=== PATIENT | female | born 2000 | race Caucasian/White ===

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

== ENCOUNTER 2022-09-22 15:53 | Emergency (ER) | payer OTHER, SELFPAY ==
[2022-09-22 16:08] VITALS: BP 118/60; PULSE 80; RESP 20; TEMP 36.3; O2SAT 100
--- NOTE | 2022-09-22 16:13 | ED.URI ---
HPI - URI/Sore Throat General Chief Complaint: Upper Respiratory Infection Stated Complaint: congestion/ear pain Time Seen by Provider: 09/22/22 16:10 Source: patient Mode of arrival: ambulatory Limitations: no limitations History of Present Illness HPI Narrative: Dyana is a 22-year-old female patient presenting to the clinic today with complaints of runny nose, congestion, and right ear pain. She reports symptoms have been going on for approximately 2 days. Did a COVID test at home and it was negative. MD elicited complaint: cough and nasal congestion Related Data Home Medications Medication Instructions Recorded Confirmed norgestimate 0.25 mg-ethinyl 1 tablet PO DAILY 06/25/21 09/22/22 estradiol 35 mcg tablet (Verna) sertraline 100 mg tablet 150 mg PO DAILY 06/25/21 09/22/22 trazodone 100 mg tablet 100 mg PO HS 06/25/21 09/22/22 topiramate 25 mg tablet 25 mg PO BID 09/22/22 09/22/22 Allergies Allergy/AdvReac Type Severity Reaction Status Date / Time No Known Allergies Allergy Verified 09/22/22 16:13 Review of Systems Review of Systems: Pertinent positives per HPI. Patient denies any fever, chills, rash, headache, visual changes, dizziness, shortness of breath, chest pain, palpitations, nausea, vomiting, diarrhea, constipation, abdominal pain, or any urinary issues. PMFSH Comments At the time of my signature, I reviewed and agree with the nursing past medical, surgical, social, and family history. There is no relevant family history pertinent to the patient complaint. Exam Narrative: General: Well-developed, obese, in no apparent distress Head: Normocephalic, atraumatic Eyes: Pupils equally round and reactive to light bilaterally, EOM intact, sclera and conjunctive clear, no discharge, lids normal Ears: Left tMs intact and clear, right TM intact, with fluid noted behind the TM, ear canals clear, no drainage, grossly hearing normal. Nose: Nares patent, clear nasal discharge, no inflammation, no sinus tenderness. Mouth: Oral pharynx without lesions or masses, good dentition, MMM. Postnasal drip Neck: Supple, trachea midline, no enlargement of anterior or posterior cervical nodes, no thyroid masses or goiter palpable. Cardio: Regular rate and rhythm, s1 and s2 normal, no murmur appreciated. Resp: Clear to auscultation bilaterally, no rhonchi, rales, wheezing or rubs Course Course Emergency Course: Portions of this record may have been created with voice recognition software. Level of Care: Express Care Visit Vital Signs Vital signs: Vital Signs Temperature 36.3 C L 09/22/22 16:08 Pulse Rate 80 09/22/22 16:08 Respiratory Rate 20 09/22/22 16:08 Blood Pressure 118/60 09/22/22 16:08 Pulse Oximetry 100 09/22/22 16:08 Oxygen Delivery Room Air 09/22/22 16:08 Temperature 36.3 C L 09/22/22 16:08 Pulse Rate 80 09/22/22 16:08 Respiratory Rate 20 09/22/22 16:08 Blood Pressure 118/60 09/22/22 16:08 Pulse Oximetry 100 09/22/22 16:08 Oxygen Delivery Room Air 09/22/22 16:08 Vital signs reviewed MDM - URI/Sore Throat MDM Narrative Medical decision making narrative: At the time of visit patient is resting comfortably on the exam table. I suspect patient has serous otitis and URI. Will send in prescription for some prednisone. Supportive measures were discussed with the patient she voiced understanding discharge instructions and agrees to treatment plan. Differential Diagnosis Differential diagnosis: Likely upper respiratory infection, otitis media, sinusitis, viral infection, bronchitis, influenza, pharyngitis and other (COVID) Discharge Plan Discharge Clinical Impression: Upper respiratory infection Qualifiers: URI type: unspecified URI Qualified Code(s): J06.9 - Acute upper respiratory infection, unspecified Acute serous otitis media Qualifiers: Laterality: right Recurrence: non-recurrent Qualified Code(s): H65.01 - Acute serous otitis media,
== END 2022-09-22 16:20 | disposition home or self-care (01) ==
PROVIDERS: Emergency Provider Nurse Practitioner Family; PCP Nurse Practitioner Family
DX: J06.9 Acute upper respiratory infection, unspecified (principal); H65.01 Acute serous otitis media, right ear; F41.9 Anxiety disorder, unspecified; F32.A Depression, unspecified
CPT/HCPCS: 99213; G0463

== ENCOUNTER 2022-11-29 13:13 | Emergency (ER) | payer OTHER, SELFPAY ==
[2022-11-29 13:20] VITALS: BP 150/80; PULSE 85; RESP 16; TEMP 36.7; O2SAT 100
--- NOTE | 2022-11-29 13:24 | ED.UPPEXIN ---
HPI - Extremity Injury (Upper) General Chief Complaint: Extremity Injury, Upper Stated Complaint: Right Shoulder Pain Source: patient and RN notes reviewed History of Present Illness HPI narrative: 22 yo F presents to urgent care with complaints of right posterior shoulder pain that radiates down to right hand. Pt reports tingling to right fingers. Pt states this has been going on since Tuesday night/Tuesday morning. Pt denies any strenuous or abnormal activity. Denies any posterior neck pain but reports some right lateral neck pain. Denies any fevers, chills, chest pain, SOB, or vomiting. Pt has been taking ibuprofen and Tylenol at home. Related Data Home Medications Medication Instructions Recorded Confirmed sertraline 100 mg tablet 150 mg PO DAILY 06/25/21 11/29/22 trazodone 100 mg tablet 100 mg PO HS 06/25/21 11/29/22 topiramate 25 mg tablet 25 mg PO BID 09/22/22 11/29/22 norgestimate 0.25 mg-ethinyl 1 tablet PO DAILY 11/29/22 11/29/22 estradiol 35 mcg tablet (Sprintec (28)) Allergies Allergy/AdvReac Type Severity Reaction Status Date / Time No Known Allergies Allergy Verified 11/29/22 13:25 Review of Systems Review of Systems: CONSTITUTIONAL: Denies fever, chills, or sweats. EYES: Denies visual changes, redness, or discharge. ENT: Denies otalgia and sore throat CARDIOVASCULAR: Denies chest pain, palpitations, or edema. RESPIRATORY: Denies cough or dyspnea. GASTROINTESTINAL: Denies abdominal pain, nausea, vomiting, or diarrhea. GENITOURINARY: Denies dysuria or hematuria. SKIN: Denies rash or itching. MUSCULOSKELETAL:right posterior shoulder pain that radiates down right arm into hand NEUROLOGIC: tingling to right 4th and 5th fingers Pertinent positives per HPI. PMFSH Comments At the time of my signature, I reviewed and agree with the nursing past medical, surgical, social, and family history. There is no relevant family history pertinent to the patient complaint. Exam Narrative: GENERAL: This is a well-nourished, well-developed patient, in no apparent distress. HEAD: normocephalic, atraumatic. EYES: Sclera clear/white. Vision is grossly intact. EARS: External ears normal, auditory canals clear and without drainage. Hearing grossly intact. NOSE: External nose normal with no obvious nasal discharge, nares without redness, no rhinorrhea. THROAT: Mucous membranes moist, posterior pharynx clear. NECK: Neck supple, non-tender without lymphadenopathy, masses or thyromegaly. CARDIOVASCULAR: Regular rate and rhythm without murmurs, gallops, or rubs. RESPIRATORY: Clear to auscultation. Breath sounds equal bilaterally. No wheezes, rales, or rhonchi. GASTROINTESTINAL: Abdomen soft, non-tender, nondistended. Bowel sounds are active. No hepato-splenomegaly, or palpable masses. No guarding. SKIN: warm, intact with no suspicious lesions or rash, good texture and turgor. NEURO: awake, alert, and oriented to person, place and time. There were no obvious focal neurologic abnormalities. EXTREMITIES: No clubbing, cyanosis, or edema. No joint tenderness, effusion, or edema noted. Pt able to lift right shoulder up to shoulder height before being stopped from pain in shoulder. Tenderness to right posterior shoulder. BACK: Nontender without deformity or crepitus. No flank tenderness. Course Course Level of Care: Express Care Visit Vital Signs Vital signs: Reviewed MDM - Extremity Injury (Upper) MDM Narrative Medical decision making narrative: Take the muscle relaxers as directed. Do not drive after taking the muscle relaxers. May take 600 mg of ibuprofen every 6 hours with food and 1,000 mg of Tylenol every 5 hours for pain. If symptoms persist, talk to your wafer machine operator about possible steroid. Differential Diagnosis Differential diagnosis: Likely dislocation of shoulder and other (shoulder strain, radiculopathy) Critical Care Time Critical Care Time Critical Care Time: No Discharge Plan Discharge
[2022-11-29 13:27] VITALS: BP 150/80; PULSE 85; RESP 16; TEMP 36.7; O2SAT 100
== END 2022-11-29 13:34 | disposition home or self-care (01) ==
PROVIDERS: Emergency Provider Nurse Practitioner Family; PCP Nurse Practitioner Family
DX: M54.12 Radiculopathy, cervical region (principal); Z79.899 Other long term (current) drug therapy
CPT/HCPCS: 99213; G0463

== ENCOUNTER 2022-12-28 11:27 | Emergency (ER) | payer OTHER, SELFPAY ==
[2022-12-28 11:34] VITALS: BP 120/80; PULSE 96; RESP 20; TEMP 36.7; O2SAT 100
--- NOTE | 2022-12-28 12:01 | ED.GENADULT ---
HPI - General Adult General Chief complaint: Upper Respiratory Infection Stated complaint: Congestion/Chills Source: patient Mode of arrival: ambulatory Limitations: no limitations History of Present Illness HPI narrative: Patient presents for evaluation of sick symptoms for last 3 days. Symptoms include sore throat, sinus congestion, nausea, diarrhea, occasional cough and generalized body aches. No fever, chills, vomiting, or shortness of breath. 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 She took a home COVID test which was negative. Related Data Home Medications Medication Instructions Recorded Confirmed sertraline 100 mg tablet 150 mg PO DAILY 06/25/21 12/28/22 trazodone 100 mg tablet 100 mg PO HS 06/25/21 12/28/22 topiramate 25 mg tablet 25 mg PO BID 09/22/22 12/28/22 norgestimate 0.25 mg-ethinyl 1 tablet PO DAILY 11/29/22 12/28/22 estradiol 35 mcg tablet (Sprintec (28)) Allergies Allergy/AdvReac Type Severity Reaction Status Date / Time Sulfa (Sulfonamide Allergy Hives Verified 12/28/22 11:43 Antibiotics) Review of Systems Review of Systems: CONSTITUTIONAL: Denies fever, chills, or sweats. EYES: Denies visual changes, redness, or discharge. ENT: Reports sinus congestion and sore throat. Denies otalgia CARDIOVASCULAR: Denies chest pain, palpitations, or edema. RESPIRATORY: Reports occasional cough GASTROINTESTINAL: Reports nausea and diarrhea. Denies abdominal pain or vomiting GENITOURINARY: Denies dysuria or hematuria. SKIN: Denies rash or itching. MUSCULOSKELETAL: Reports generalized body aches NEUROLOGIC: Denies headache, numbness, dizziness, or weakness. PSYCHIATRIC: Denies anxiety or depression. [facility] Past Medical History Medical History No pertinent past medical history Surgical History Surgical History No pertinent past surgical history Family History Family History Mother Family history non-contributory Social History Social History Tobacco type: e-cigarettes/vaping Living arrangements: with family Additional occupation/education comments: works in pharmacy Gender identity (if verbalized by the patient): Female Spiritual care concerns: No Exam Narrative: GENERAL: Well-appearing, well-nourished, and in no acute distress. HEAD: Normocephalic, atraumatic. EYES: PERRLA and EOMI. ENT: Nares clear, no rhinorrhea or epistaxis. Mucous membranes moist. Oropharynx without tonsillar hypertrophy exudate or other lesions. Bilateral TMs pearly atlamirano nonbulging NECK: Supple. No adenopathy or masses. No carotid bruits or JVD CHEST: Clear to auscultation. No respiratory distress. No wheezes rales or rhonchi HEART: Regular rate and rhythm. No murmur heard. Normal peripheral pulses. ABDOMEN: Soft, nontender, nondistended, normal active bowel sounds. EXTREMITIES: Normal range of motion. No edema. SKIN: Warm, dry, no rash. NEURO: No focal deficits. Alert and oriented x3. PSYCH: Normal mood and affect. Course Course Emergency Course: This is a 22-year-old female who presented for evaluation of sick symptoms. COVID test at home was negative. Influenza and strep negative. Will treat with Zofran and the mode. Increase hydration. Biuk-muw-[id number] agents for symptom management. Follow with primary provider. Go to the ER for worsening symptoms. Patient in agreement plan of care. Level of Care: Express Care Visit Vital Signs Vital signs: Vital Signs Temperature 36.7 C 12/28/22 11:34 Pulse Rate 96 12/28/22 11:34 Respiratory Rate 20 12/28/22 11:34 Blood Pressure 120/80 12/28/22 11:34 Pulse Oximetry 100 12/28/22 11:
== END 2022-12-28 12:06 | disposition home or self-care (01) ==
PROVIDERS: Emergency Provider Nurse Practitioner; PCP Family Medicine
DX: B34.9 Viral infection, unspecified (principal); F17.290 Nicotine dependence, other tobacco product, uncomplicated; Z79.899 Other long term (current) drug therapy
CPT/HCPCS: 87081; 87804; 87880; 99213; G0463

== ENCOUNTER 2023-11-02 08:11 | Emergency (ER) | payer OTHER, SELFPAY ==
--- NOTE | ~2023-11-02 | XR_ITS ---
XR chest 1V portable Ordering provider: Iron Hamm MD History: 23 years Female with . flu like sxs, nausea, vomitting, body aches . Comparison: None. FINDINGS: MEDIASTINUM: The cardiac silhouette is not enlarged. LUNGS: No infiltrates, effusions or pneumothorax. OTHER: No free air under the diaphragm. IMPRESSION: No acute cardiopulmonary pathology. Reviewed, dictated and finalized at location A.
[2023-11-02 08:21] VITALS: BP 143/94; PULSE 115; RESP 18; TEMP 36.2; O2SAT 97
[2023-11-02 08:32] LABS: Basophils Percent Auto 0.6 % (0.2-1.2); Eosinophils Percent Auto 0.4 % (0-4.4); Hematocrit 45.5 % (37.0-47.0); Hemoglobin 16.1 g/dL (12.0-15.0); Immature Granulocyte Absolute 0.02 K/mm3 (0.00-0.031); Immature Granulocyte Percent A 0.3 % (0-0.5); Lymphocytes Absolute Auto 1.04 K/mm3 (0.9-3.2); Lymphocytes Percent Auto 15.5 % (18.3-44.2); Mean Corpuscular HGB Conc 35.4 g/dl (32-36); Mean Corpuscular Hemoglobin 30.6 pg (26-34); Mean Corpuscular Volume 86.5 fl (80-100); Mean Platelet Volume 10.2 fl (7.4-10.4); Monocytes Absolute Auto 0.6 K/mm3 (0.1-0.6); Monocytes Percent Auto 9.6 % (2.6-8.5); Neutrophils Absolute Auto 4.9 K/mm3 (1.3-6.7); Neutrophils Percent Auto 73.6 % (45.5-73.1); Platelet Count Result 248 k/mm3 (150-375); Red Blood Count 5.26 M/mm3 (4.2-5.4); Red Cell Distribution Width 13.2 % (11.5-14.5); White Blood Count 6.7 K/mm3 (4.5-10.0)
[2023-11-02 08:33] VITALS: BP 157/89; PULSE 126; RESP 12; O2SAT 93
--- NOTE | 2023-11-02 08:34 | PC.NURSE ---
pt attempted to provide urine sample but was unable to go at this time
[2023-11-02 08:46] VITALS: BP 118/95; PULSE 113; RESP 20; O2SAT 94
[2023-11-02 08:49] LABS: Alanine Aminotransferase 37 U/L (6-35); Albumin Level 4.9 g/dL (3.5-5.1); Alkaline Phosphatase 74 U/L (38-126); Anion Gap 23 mmol/L (4-12); Aspartate Amino Transferase 50 U/L (14-36); Bilirubin,Total 1.1 mg/dL (0.2-1.3); Blood Urea Nitrogen 5 mg/dL (7-17); Calcium 9.8 mg/dL (8.4-10.2); Carbon Dioxide 18 mmol/L (22-30); Chloride 97 mmol/L (98-107); Estimated CRCL calculation 129 ml/min; Estimated Glomerular Filt Rate > 60; Glucose 102 mg/dL (65-110); Lipase 147 U/L (23-300); Sodium 138 mmol/L (137-145)
[2023-11-02 09:31] VITALS: BP 107/90; PULSE 113; RESP 15; O2SAT 99
[2023-11-02 10:04] LABS: Appearance Urine Sl Cloudy (Clear); Color Urine Dark Yellow (Yellow)
[2023-11-02 10:05] LABS: Add Urine Microscopic? YES
[2023-11-02 10:10] LABS: Mucus Urine Moderate /lpf
[2023-11-02 10:11] LABS: Bacteria Urine 4+ /hpf; Blood Urine Trace-intact (Negative); Glucose Urine UA Negative (Negative); Ketones Urine 4+ mg/dL (Negative); Protein Urine 1+ mg/dL (Negative); Specific Grav Ur >= 1.030 (1.001-1.035)
[2023-11-02 10:12] LABS: Bilirubin Urine 2+ (Negative); Leukocyte Esterase Ur 1+ LEU/UL (Negative); Nitrate Urine Negative (Negative); RBC Urine 0-2 /hpf (0-2); Squamous Epithelial Cell Urine Moderate /hpf (Few); Urobilinogen Urine 0.2 mg/dL (<2.0)
[2023-11-02 10:23] LABS: Pregnancy On Board Control Positive; Urine Pregnancy Test Negative
--- NOTE | 2023-11-02 10:40 | ED.GENADULT ---
HPI - General Adult General Chief complaint: Abdominal Pain Stated complaint: abdominal pain/weakness/SOB Time Seen by Provider: 11/02/23 08:35 History of Present Illness HPI narrative: This is a 23-year-old female presenting with viral illness. Five days ago she developed fevers headaches body aches nausea and vomiting. Patient has been seen in Urgent Care and primary care physician. Patient came in today because she had a headache. She has not taken any Motrin or Tylenol today. Patient denies chest pain difficulty breathing. She does have some abdominal pain which she is states with nausea and vomiting. No urinary symptoms. Related Data Home Medications Medication Instructions Recorded Confirmed sertraline 100 mg tablet 150 mg PO DAILY 06/25/21 11/02/23 trazodone 100 mg tablet 100 mg PO HS 06/25/21 11/02/23 topiramate 25 mg tablet 25 mg PO BID 09/22/22 11/02/23 norgestimate 0.25 mg-ethinyl 1 tablet PO DAILY 11/29/22 11/02/23 estradiol 35 mcg tablet (Sprintec (28)) Allergies Allergy/AdvReac Type Severity Reaction Status Date / Time Sulfa (Sulfonamide Allergy Hives Verified 12/28/22 11:43 Antibiotics) [facility] Past Medical History Medical History No pertinent past medical history Surgical History Surgical History No pertinent past surgical history Family History Family History Mother Family history non-contributory Social History Social History Tobacco type: e-cigarettes/vaping Living arrangements: with family Additional occupation/education comments: works in pharmacy Gender identity (if verbalized by the patient): Female Spiritual care concerns: No Exam Narrative: APPEARANCE: No apparent distress. Head: a TMs normal, no erythema posterior oropharynx EYES: EOMI, NOSE: Atraumatic NECK: Trachea midline RESPIRATORY: No increased rate of breathing clear to auscultation CARDIOVASCULAR: RRR, no peripheral edema ABDOMINAL: Soft nontender no guarding or rebound no CVA tender MUSCULOSKELETAl: No obvious deformities NEURO: Alert. Moving 4/4 extremities SKIN:: Warm, dry. Normal color PSYCHIATRIC: Normal affect Course Vital Signs Vital signs: Vital Signs Temperature 97.1 F L 11/02/23 08:21 Pulse Rate 115 H 11/02/23 08:21 Respiratory Rate 18 11/02/23 08:21 Blood Pressure 143/94 H 11/02/23 08:21 Pulse Oximetry 97 11/02/23 08:21 Temperature 97.1 F L 11/02/23 08:21 Pulse Rate 101 H 11/02/23 11:01 Respiratory Rate 16 11/02/23 11:01 Blood Pressure 116/89 11/02/23 11:01 Pulse Oximetry 100 11/02/23 11:01 Medical Decision Making MDM Narrative Medical decision making narrative: -Course: 23-year-old female presenting with viral symptoms. White count normal. Patient with slight anion gap acidosis likely due to dehydration. Patient given 2 L of fluid resuscitation and potassium repletion. Urine was a contaminated catch and she has no urinary symptoms. Will continue to monitor. Viral swabs negative, chest x-ray negative. On re-evaluation patient is resting comfortably in bed. She will be discharged with supportive measures and given primary care follow-up. -DDX includes but is not limited to: Viral syndrome pneumonia UTI dehydration, sepsis -Independent interpretation of studies: Independent EKG interpretation: Rhythm [sinus], Rate [88], [place] -[normal], [place] -[normal], QRS [narrow], QTC [normal], T waves -[negative for concerning inversions], ST Segments - [Negative for concerning elevations] Final interpretations: [Normal Sinus Rhythm] -Interventions: 2 L normal saline, Toradol Tylenol, potassium repletion -Shared decision making / Disposition: Discharge Vital Signs Vital Signs: Vital Signs Temperature 97.1 F
--- NOTE | 2023-11-02 10:44 | ECG_ITS ---
Test Date: 2023-11-02 10:56:09 Measurements Intervals [place] Rate: 88 P: -12 AR: 140 QRS: 64 QRSD: 83 T: 59 QT: 362 QTc: 439 Interpretive Statements SINUS RHYTHM NORMAL ECG No previous ECG available for comparison Electronically Signed On 11-02-2023 11:53:48 CDT by Ramiro Zapien D.O.
[2023-11-02] MEDS: POTASSIUM CHLORIDE 20 MEQ PACKET (FOR LIQUID) 40 MEQ PO (10:45)
[2023-11-02] MEDS: KETOROLAC 15 MG/ML VIAL (*BKC) IV PUSH (10:45)
[2023-11-02] MEDS: ACETAMINOPHEN 500 MG TABLET 1000 MG PO (10:45)
[2023-11-02] MEDS: SODIUM CHLORIDE 0.9% IV 2,000 ML 999 ML IV CONT (10:45)
[2023-11-02] MEDS: ONDANSETRON INJ 4 MG/2 ML VIAL IV PUSH (10:46)
[2023-11-02 10:55] VITALS: BP 127/87; PULSE 89; RESP 12; O2SAT 100
[2023-11-02 11:01] VITALS: BP 116/89; PULSE 101; RESP 16; O2SAT 100
[2023-11-02 11:31] LABS: Influenza A QL RT-PCR Negative (Negative); Influenza B QL RT-PCR Negative (Negative); RSV RNA, RT-PCR Negative (Negative); SARS-CoV-2 RNA PCR Negative (Negative)
== END 2023-11-02 12:02 | disposition home or self-care (01) ==
PROVIDERS: Emergency Provider Emergency Medicine; PCP Nurse Practitioner Family
DX: B34.9 Viral infection, unspecified (principal); Z20.822 Contact with and (suspected) exposure to COVID-19; F17.290 Nicotine dependence, other tobacco product, uncomplicated; Z79.899 Other long term (current) drug therapy
CPT/HCPCS: 36415; 71045; 80053; 81001; 81025; 83690; 85025; 87086; 87637; 93005; 96361; 96374; 96375; 99284; A9270; J1885; J2405; J7030

== ENCOUNTER 2024-04-20 13:24 | Emergency (ER) | payer OTHER, SELFPAY ==
--- NOTE | ~2024-04-20 | XR_ITS ---
EXAMINATION: XR knee LT min 4V DATE: 04/20/2024 14:08 INDICATION: Left knee injury. TECHNIQUE: 4 views of left knee were obtained. COMPARISON: None. FINDINGS: Alignment is normal. No fracture. Joint spaces are normal. No knee joint effusion. IMPRESSION: 1. Normal left knee. Reviewed, dictated and finalized at location L. IMPRESSION: 1. Normal left knee.
--- OUTSIDE RECORDS SUMMARY | 2024-04-20 13:26 | XMS_ITS | Clinical Summary ---
Author Organization [facility] Address [address] [place] [address] Phone Care Team Providers Care Carbide Grinder Name Role Phone Allyson Mckee MD Primary Care Provider + Allergies No known active allergies Medications No known medications Social History Tobacco Use Types Packs/Day Years Used Date Smoking Tobacco: Never Smokeless Tobacco: Never Alcohol Use Standard Drinks/Week Comments Never 0 (1 standard drink = 0.6 oz pur e alcohol) Comments Unknown Sex and Gender Information Value Date Recorded Sex Assigned at Not on file Legal Sex Female 11:42 AM CDT Gender Identity Not on file Sexual Orientation Not on file Last Filed Vital Signs Vital Sign Reading Time Taken Comments Blood Pressure 126/79 11/03/2021 2:26 PM CDT Pulse 94 11/03/2021 11:47 AM CDT Temperature 36.9 C (98.5 F) 11/03/2021 11:47 AM CDT Respiratory Rate 20 11/03/2021 11:47 AM CDT Oxygen Saturation 99% 11/03/2021 2:26 PM CDT Inhaled Oxygen Concentration - - Weight 90.7 kg (200 lb) 11/03/2021 11:47 AM CDT Height 170.2 cm (5' 7 ) 11/03/2021 11:47 AM CDT Body Mass Index 31.32 11/03/2021 11:47 AM CDT Plan of Treatment Health Maintenance Due Date Last Done Comments Hepatitis C Virus (HCV) Screening 2002 Hepatitis B Immunization (2 of 3 - 3-dose series) 08/08/2003 07/11/2003 Meningococcal B Immunization (2 of 2 - Bexsero SCDM 2-dose series) 03/07/2020 09/05/2019 Pap Smear 2023 Influenza Immunization (#1) 2023 12/2 04/2020, 10/31/2017, 12/27/2007, Additional history exists SARS-COV-2 Immunization (2023- season) 2023 08/17/2021, 04/02/2020, 03/12/2020 Respiratory Syncytial Virus (RSV) Immunization (Adult) (1 - 1-dose 75+ series) 2077 Pneumococcal Immunization Combined Aged Out 07/11/2003, 2002, 2002, Additional history exists No longer eligible based on patient's age to complete this topic DTaP/Tdap/Td Immunization Discontinued 2013, 08/23/2007, 2002, Additional history exists TdaP Immunization Completed 10/10/2013 Human Papillomavirus (HPV) Immunization Completed 10/20/2016, 12/09/2015 Meningococcal Immunization (ACWY) Completed 09/05/2019, 10/10/2013 Rotavirus Immunization Aged Out No lo nger eligible based on patient's age to complete this topic Insurance [facility] Care Teams Carbide Grinder Relationship Specialty Start Date End Date Allyson Mckee MD [address] [place] [id number] PCP - General Family Medicine 11/03/21
--- OUTSIDE RECORDS SUMMARY | 2024-04-20 13:27 | XMS_ITS | Referral Summary ---
Author Organization [facility] Address [address] [place] [address] Care Team Providers Care Broadcasting Equipment Mechanic Name Role Phone Callie Julien MD Primary Care Provider [phone] Source Comments [facility],non-owned Affiliates and Associated Physician Practices is amultiple site organization consisting of ambulatory clinics and hospital sitesin [place], [place], [place] and [place]. This disclosure is being madepursuant to the Care Everywhere program and may not contain all information available regarding this patient. Last updated 17.[facility] Allergies No known active allergies Medications * Be aware that medications may not be up to date on this document. Alwaysverify current medications with the patient. Medication Sig Dispensed Refills Start Date End Date Status sertraline (ZOLOFT) 50 MG tablet Take 50 mg by mouth once daily Active acetaminophen (TYLENOL) 325 MG tablet Take 325 mg by mouth every 4 hours as needed for Fever or Pain Maximum allowable Acetaminophen amount = 4 Grams (4000 mg) / 24 hours. Active ibuprofen (MOTRIN) 400 MG tablet Take 1 tablet by mouth every 6 hours as needed for Pain 30 tablet 11/24/2017 Active SPRINTEC 28 0.25-35 MG-MCG tablet 02/15/2018 Active Active Problems Problem Noted Date Diagnosed Date Thumb pain, left 05/03/2018 Cyst of joint of hand, left 02/06/2018 Social History Tobacco Use Types Packs/Day Years Used Date Smoking Tobacco: Passive Smo ke Exposure - Never Smoker Smokeless Tobacco: Never Alcohol Use Standard Drinks/Week Comments No 0 (1 standard drink = 0.6 oz pur e alcohol) Sex and Gender Information Value Date Recorded Sex Assigned at Not on file Gender Identity Not on file Sexual Orientation Not on file Last Filed Vital Signs Vital Sign Reading Time Taken Comments Blood Pressure 134/79 04/07/2018 9:45 AM BEEF GRADER Pulse 120 04/07/2018 9:45 AM BEEF GRADER Temperature 36.8 C (98.2 F) 04/07/2018 9:11 AM BEEF GRADER Respiratory Rate 16 04/07/2018 9:45 AM BEEF GRADER Oxygen Saturation 98% 04/07/2018 9:45 AM BEEF GRADER Inhaled Oxygen Concentration - - Weight 76.5 kg (168 lb 10.4 oz) 019 11:27 AM CDT Height 170.3 cm (5' 7.05 ) 05/03/2018 1 1:27 AM CDT Body Mass Index 26.38 05/03/2018 11:27 AM CDT Plan of Treatment Not on file Care Teams Broadcasting Equipment Mechanic Relationship Specialty Start Date End Date Callie Julien MD [address] [place], [place] [id number] PCP - General Pediatrics 03/21/13
--- OUTSIDE RECORDS SUMMARY | 2024-04-20 13:27 | XMS_ITS | Encounter Summary ---
Author Organization [facility] Address [address] [place]: Epic P[facility] [place] [address] Care Team Providers Care Microelectronics Engineer Name Role Phone Unavailable Primary Care Provider Unavailabl e Encounter Details Date Type Department Care Team (Late st Contact Info) Description 2002 Inpatient Historical Betzaida Olsen MD NO ADDRESS ON FILE Anu Hodge MD [address] [id number] [facility]/DELIVERY (Primary Dx) Social History Tobacco Use Types Packs/Day Years Used Date Smoking Tobacco: Never Assessed Comments Unknown Sex and Gender Information Value Date Recorded Sex Assigned at Not on file Legal Sex Female 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
--- OUTSIDE RECORDS SUMMARY | 2024-04-20 13:27 | XMS_ITS | Clinical Summary ---
Author Organization [facility] Address [address] [place] [address] Care Team Providers Care Retail Client Solutions Consultant Name Role Phone Unavailable Primary Care Provider Unavailabl e Social History Tobacco Use Types Packs/Day Years Used Date Smoking Tobacco: Never Assessed Comments Unknown Sex and Gender Information Value Date Recorded Sex Assigned at Not on file Legal Sex Female 4:59 AM MANUFACTURING ADVISOR Gender Identity Not on file Sexual Orientation Not on file Plan of Treatment Health Maintenance Due Date Last Done Comments CHLAMYDIA SCREENING (ANNUAL) 11-24 YEARS 2013 HPV VACCINES (1 - 3-dose series) 2017 DTAP/TDAP/TD VACCINES (1 - Tdap) 2021 HEPATITIS B VACCINES (1 of 3 - 19+ 3-dose series) 2021 CERVICAL CANCER SCREENING 2023 INFLUENZA VACCINE Completed 12/01/2023, 01/27/2021 PNEUMOCOCCAL VACCINE 0-49 YEARS Aged Out No longer eligible b ased on patient's age to complete this topic Insurance [employer] CHOICE PPO [facility] Address: [facility] [id number] [id number]
--- OUTSIDE RECORDS SUMMARY | 2024-04-20 13:27 | XMS_ITS | Clinical Summary ---
Author Organization [facility] Address [address] [place] [address] Care Team Providers Care Bending Press Operator Name Role Phone Callie Julien MD Primary Care Provider [phone] Source Comments [facility],non-owned Affiliates and Associated Physician Practices is amultiple site organization consisting of ambulatory clinics and hospital sitesin [place], [place], [place] and [place]. This disclosure is being madepursuant to the Care Everywhere program and may not contain all information available regarding this patient. Last updated 17.[facility] [employer] Allergies No known active allergies Medications * [...] Comments Blood Pressure 134/79 04/07/2018 9:45 AM WET PAN OPERATOR Pulse 120 04/07/2018 9:45 AM WET PAN OPERATOR Temperature 36.8 C (98.2 F) 04/07/2018 9:11 AM WET PAN OPERATOR Respiratory Rate 16 04/07/2018 9:45 AM WET PAN OPERATOR Oxygen Saturation 98% 04/07/2018 9:45 AM WET PAN OPERATOR Inhaled Oxygen Concentration - - Weight 76.5 kg (168 lb 10.4 oz) 019 11:27 AM CDT Height 170.3 cm (5' 7.05 ) 05/03/2018 1 1:27 AM CDT Body Mass Index 26.38 05/03/2018 11:27 AM CDT Plan of Treatment Health Maintenance Due Date Last Done Comments PAP SMEAR 2002 HIV SCREENING 2017 HPV VACCINE (1 - 3-dose series) 2017 CHLAMYDIA/GONORRHEA SCREENING 2018 MENINGOCOCCAL (Group B) VACC INE SHARED DECISION-MAKING (1 of 2 - Standard) 2018 HEPATITIS C SCREENING 03/19/2020 DTAP/TDAP/TD VACCINES (1 - Tdap) 2021 HEPATITIS B VACCINE (1 of 3 - 19+ 3-dose series) 2021 COVID-19 VACCINE (1 - 2023-2 5 season) 2023 INFLUENZA VACCINE (#1) 2023 DEPRESSION SCREENING 02/08/2024 ZOSTER VACCINE (1 of 2) 2052 HIB VACCINE Aged Out No longer eligi ble based on patient's age to complete this topic MENINGOCOCCAL GROUPS A/C/Y/W VACCINE Aged Out No longer eligible b ased on patient's age to complete this topic PNEUMOCOCCAL VACCINE Aged Out No long er eligible based on patient's age to complete this topic Care Teams Bending Press Operator Relationship Specialty Start Date End Date Callie Julien MD [address] [place], [place] [id number] PCP - General Pediatrics 03/21/13
--- OUTSIDE RECORDS SUMMARY | 2024-04-20 13:27 | XMS_ITS | Data Portability ---
Author Organization [facility] [employer], Main Office Address [address] [place] [address] Assessment No assessment recorded. Plan of Treatment Reminders Order Date Submit Date Provider Last Modified By Organization Details Last Modified Time Details Appointments None recorded. Lab rapid strep group A, throat 2023 024 KAREN [facility] [address], [place], [address], 4 12:26:02 glycohemogl obin, total, blood 2023 024 [email or web address] 7 [facility] (Lab), [address] [place], [address], 4 08:07:38 CBC w/ auto diff 2023 024 [email or web address] 7 [facility] (Lab), [address] [place], [address], 4 08:07:38 CMP, serum or plasma 2023 024 [email or web address] 7 [facility] (Lab), [address] [place], [address], 4 08:07:38 lipid panel, serum 2023 024 [email or web address] 477 [facility] (Lab), [address] [place], [address], 4 08:07:38 TSH, serum, reflex free T4 [address] (Lab), [address] [place], [address], 4 08:07:38 vitamin D, 25-hydroxy, total, serum [address] (Lab), [address] [place], [address], 4 08:07:38 hepatitis C virus Ab, serum [address] (Lab), [address] [place], [address], 4 08:07:39 Referral None recorded. Procedures None recorded. Surgeries None recorded. Imaging None recorded. Medication Orders ondansetron 4 mg disintegrat ing tablet 2023 [facility][id number], [address], [place], [place], [id number], 4 12:25:03 Sprintec (28) 0.25 mg-35 mcg tablet 2023 [facility][id number], [address], [place], [place], [id number], 4 11:49:04 sertraline 100 mg tablet 2023 [facility] #75426, [address], [place], [place], [id number], 4 11:48:51 trazodone 100 mg tablet 2023 [facility] #10908, [address], [place], [place], [id number], 4 11:48:57 topiramate 25 mg tablet 2023 024 [facility] #[id number], [address], [place], [place], [id number], 4 11:48:48 Zepbound 2.5 mg/0.5 mL subcutaneou s pen injector 2023 024 [email or web address] 3 [facility]46495, [address], [place], [place], [id number], 4 11:11:25 Patient TargetsNo targets recorded. Patient InstructionsNo instructions recorded. Reason for Referral None Reported. Results Created Date Observation Date Name Description Value Unit Range Abnormal Flag Note LastModifiedBy Organization Detail LastModifiedTime 11/01/19 24 11/01/2023 rapid strep group A, throa t STREP A negati ve Not Available [facility] [address], [place], [address], 11/01/2023 12:24:42 11/02/19 24 11/02/2023 XR, chest , 2 view No observ ation record ed. [email or web address] [facility] [address], [place], [address], 11/02/2023 14:29:47 Result Notes None recorded. Problems Name Problem SNOMED Code Status Onset Date Resolution Date Notes Provider Name and Address Organization Details Recorded Time Depressive disorder 65305988 Active 2020 Not Available [facility] 3 10:45:41 Anxiety 36019477 Active 2020 Not Available [facility] 3 10:45:41 Dysmenorrh ea 462449476 Active 2022 NADEEN Quiles [address] [facility], [facility] [address], [place], [address] , [facility] 3 12:03:48 Migraine 52390262 Active 2022 Bethany HerreraNADEEN [address], [place], [address] , [employer] [facility] [employer] [facility] 3 12:05:05 Vitamin D deficiency 94029995 Active 2022 Bethany HerreraNADEEN [address], [place], [address] , [employer] [facility] [employer] [facility] 3 12:09:43 Cobalamin deficiency 938908684 Active 2022 Bethany MerrittNADEEN herrera [address], [place], [address] , [employer] [facility] [employer] [facility] 3 12:09:49 COVID-19 532154212 Active 2022 Allyson Mckee MD [address], [place], [address] , [employer] [facility] [employer] [facility] 3 13:13:31 Sore throat 117201399 Active 2022 Gabbie Yanez LPN [facility], [employer] [facility] [employer] [facility] 3 11:16:10 Fever 939341346 Active 2022 Allyson Mckee MD [address], [place], [address] , [employer] [facility] [employer] [facility] 3 11:54:20 Mixed anxiety and depressive disorder 352788051 Active 2023 [address]ESS[address] Blank [address], [place], [address] , [employer] [facility] [employer] [facility] 4 11:46:16 Nausea and vomiting 25399986 Active 2023 BESSIE Blank [address], [place], [address] , [facility] [employer] [facility] [employer] [facility] 4 14:36:48 Pain in left foot 9429932017837 07 Active 2024 BESSIE Blank [address], [place], [address] , [place] [facility] 5 19:11:20 Problem Notes None recorded. Procedures Surgical History Date Name Laterality Status Provider Name and Address Organization Details Recorded Time open reduction of fracture with internal fixation completed Not Available [facility] 04/07/2022 10:42:48 Imaging Results Imaging Date Name Status LastModified by Organiz ation Details LastModified Time 11/02/2023 XR, chest, 2 view completed [facility] [address], [place], [address], 11/02/2023 14:29:47 Procedure Notes None recorded. Medical Equipment None Reported. Allergies Allergen ID Allergen Name Allergen Category Reaction Reaction Severity Criticality Documentation Date Start Date Code Code System Note Provider Name and Address Organization Details Recorded Time 30987 Substance with sulfonami de structure and antibacte rial mechanism of action (substanc e) medicatio n hives severe Not available 04/07/2022 12584 8003 SNOMED Not Available [facility] 10:49:27 Medications Name Sig Start Date Stop Date Status Note LastModified by Organization Details LastModified Time cyclobenzap rine 10 mg tablet TAKE 1 TABLET BY MOUTH THREE TIMES DAILY NEEDED FOR MUSCLE SPASM 08/17 completed Not Available Not Available Not Available amoxicillin 500 mg capsule 08/17 completed Not Available Not Available Not Available trazodone 50 mg tablet Take 1 tablet every day by oral route at bedtime for 90 days. 08/17 completed Not Available Not Available Not Available azithromyci n 250 mg tablet TAKE 2 TABLETS BY MOUTH FOR 1 DAY THEN TAKE 1 TABLET BY MOUTH DAILY FOR 4 DAYS 08/17 completed Not Available Not Available Not Available ibuprofen 800 mg tablet TAKE 1 TABLET BY MOUTH THREE TIMES DAILY NEEDED FOR PAIN 08/17 completed Not Available Not Available Not Available benzonatate 200 mg capsule Take 1 capsule 3 times a day by oral route as needed. 08/17 completed Not Available Not Available Not Available prednisone 20 mg tablet TAKE 2 TABLETS BY MOUTH DAILY FOR 5 DAYS 08/17 completed Not Available Not Available Not Available sertraline 100 mg tablet TAKE 1 AND 1/2 TABLETS BY MOUTH EVERY DAY active Not Available Not Available No t Available diphenoxyla te-atropine 2.5 mg-0.025 mg tablet TAKE 1 TABLET BY MOUTH THREE TIMES DAILY NEEDED FOR DIARRHEA 08/17 completed Not Available Not Available Not Available topiramate 25 mg tablet TAKE 1 TABLET BY MOUTH TWICE DAILY active Not Available Not Available No t Available tramadol 50 mg tablet Take 1 tablet every 6 hours by oral route as needed for 5 days. 08/17 completed Not Available Not Available Not Available propranolol 10 mg tablet 08/17 completed Not Available Not Available Not Available amoxicillin 875 mg tablet 08/17 completed Not Available Not Available Not Available methocarbam ol 750 mg tablet TAKE 1 TABLET BY MOUTH EVERY 8 HOURS NEEDED FOR MUSCLE PAIN OR SPASM 08/17 completed Not Available Not Available Not Available tamsulosin 0.4 mg capsule TAKE 1 CAPSULE BY MOUTH EVERY DAY 08/17 completed Not Available Not Available Not Available trazodone 100 mg tablet TAKE 1 TABLET BY MOUTH AT BEDTIME active Not Available Not Available No t Available cephalexin 500 mg capsule TAKE 1 CAPSULE BY MOUTH TWICE DAILY 08/17 completed Not Available Not Available Not Available diclofenac sodium 75 mg tablet,neno yed release Take 1 tablet twice a day by oral route as needed. 08/17 completed Not Available Not Available Not Available methylpredn isolone 4 mg tablets in a dose pack FOLLOW PACKAGE DIRECTION S 08/17 completed Not Available Not Available Not Available albuterol sulfate HFA 90 mcg/actuati on aerosol inhaler INHALE 2 PUFFS BY MOUTH EVERY 4 HOURS NEEDED FOR WHEEZING 08/17 completed Not Available Not Available Not Available ondansetron 4 mg disintegrat ing tablet DISSOLVE 1 TABLET ON THE TONGUE EVERY 4 TO 6 HOURS active Not Available Not Available No t Available fluticasone propionate 50 mcg/actuati on nasal spray,suspe nsion SHAKE LIQUID AND USE 1 SPRAY IN EACH NOSTRIL EVERY DAY 08/17 completed Not Available Not Available Not Available naproxen 500 mg tablet 08/17 completed Not Available Not Available Not Available amoxicillin 875 mg-potassiu m clavulanate 125 mg tablet TAKE 1 TABLET BY MOUTH TWICE DAILY FOR 10 DAYS 08/17 completed Not Available Not Available Not Available Sprintec (28) 0.25 mg-35 mcg tablet TAKE 1 TABLET BY MOUTH EVERY DAY active Not Available Not Available No t Available bupropion HCl XL 150 mg 24 hr tablet, extended release Take 1 tablet every day by oral route for 90 days. 08/17 completed Not Available Not Available Not Available nitrofurant oin monohydrate /macrocryst als 100 mg capsule TAKE 1 CAPSULE BY MOUTH EVERY 12 HOURS FOR 10 DAYS 08/17 completed Not Available Not Available Not Available [facility] 08/17 completed Not Available Not Available Not Available BinaxNOW COVID-19 Ag Self Test kit TEST DIRECTED TODAY active Not Available Not Available No t Available Paxlovid 300 mg (150 mg x 2)-100 mg tablets in a dose pack TAKE 2 NIRMATREL VIR TABLETS AND 1 RITONAVIR TABLET TOGETHER BY MOUTH TWICE DAILY FOR 5 DAYS 08/17 completed Not Available Not Available Not Available Zepbound 5 mg/0.5 mL subcutaneou s pen injector active Not Available Not Available Not Available Zepbound 2.5 mg/0.5 mL subcutaneou s pen injector ADMINISTE R 2.5 MG UNDER THE SKIN EVERY WEEK 01/02 completed Not Available Not Available Not Available Zepbound 7.5 mg/0.5 mL subcutaneou s pen injector ADMINISTE R 7.5 MG UNDER THE SKIN EVERY WEEK 01/02 completed Not Available Not Available Not Available Vitals Date Recorded Body mass index (BMI) Body height Oxygen saturation Oxygen saturation in Arterial blood by Pulse oximetry Heart rate Body temperature Body weight Systolic blood pressure Diastolic blood pressure Provider Name and Address Organization Details Last Updated DateTime 2 34.1 kg/m2 172.72 cm 98 % 98 % 81 /min 96.8 [degF] 429714. 69 g 112 mm[Hg] 68 mm[Hg] Not Available [facility] 3 10:43:06 Date Recorded Body mass index (BMI) Body height Oxygen saturation Oxygen saturation in Arterial blood by Pulse oximetry Heart rate Body temperature Body weight Systolic blood pressure Diastolic blood pressure Provider Name and Address Organization Details Last Updated DateTime 3 34.1 kg/m2 172.72 cm 99 % 99 % 91 /min 97.5 [degF] 980478. 69 g 120 mm[Hg] 78 mm[Hg] Not Available [facility] 3 10:43:06 Date Recorded Body height Body mass index (BMI) Percentile per age and sex Body mass index (BMI) Body weight Body temperature Heart rate Oxygen saturation Oxygen saturation in Arterial blood by Pulse oximetry Systolic blood pressure Diastolic blood pressure Provider Name and Address Organization Details Last Updated DateTime 3 172.72 cm 97 % 35 kg/m2 565211. 25 g 97.6 [degF] 86 /min 98 % 98 % 126 mm[Hg] 82 mm[Hg] Tere Sue MA PR [employer] [facility] [employer] 3 11:58:58 Date Recorded Body weight Body temperature Oxygen saturation Oxygen saturation in Arterial blood by Pulse oximetry Heart rate Systolic blood pressure Diastolic blood pressure Provider Name and Address Organization Details Last Updated DateTime 4 431853. 13 g 98.1 [degF] 99 % 99 % 100 /min 134 mm[Hg] 82 mm[Hg] Solange Howe RN [facility] [employer] 4 11:24:00 Date Recorded Body mass index (BMI) Body height Provider Name and Address Organization Details Last Updated DateTime 08/18/2023 37.3 kg/m2 172.72 cm BESSIE Blank [address] [place] [address], [address], [employer] [facility] [employer] 08/18/2023 11:44:18 Date Recorded Body height Body temperature Oxygen saturation Oxygen saturation in Arterial blood by Pulse oximetry Heart rate Systolic blood pressure Diastolic blood pressure Provider Name and Address Organization Details Last Updated DateTime 4 172.72 cm 98.2 [degF] 98 % 98 % 112 /min 128 mm[Hg] 76 mm[Hg] Solange Howe RN [facility] [employer] 4 12:13:55 Social History Question Answer Notes LastModified by Organizat ion Details LastModified Time Tobacco Smoking Status Never Smoker Not Available [facility] 04/07/2022 10:40:57 Do You Have An Advance Directive? No [id number] Information not available 04/07/2022 What Is Your Level Of Alcohol Consumption? None [id number] Information not available 04/07/2022 What Is Your Level Of Caffeine Consumption? Moderate [id number] Information not available 04/07/2022 In The 14 Days Before Symptom Onset, Have You Had Close Contact With A Laboratory-confirm ed COVID-19 While That Case Was Ill? No [id number] Information not available 04/07/2022 In The 14 Days Before Symptom Onset, Have You Had Close Contact With A Person Who Is Under Investigation For COVID-19 While That Person Was Ill? No [id number] Information not available 04/07/2022 What Type Of Diet Are You Following? REGULAR [id number] Information not available 04/07/2022 What Was The Date Of Your Most Recent Tobacco Screening? 07/21/2020 [id number] Information not available 04/07/2022 Do You Use Any Illicit Or Recreational Drugs? No [id number] Information not available 04/07/2022 Do You Use Sunscreen Routinely? No [id number] Information not available 04/07/2022 Has Tobacco Cessation Counseling Been Provided? No [id number] Information not available 04/07/2022 Have You Recently Traveled Abroad? No [id number] Information not available 04/07/2022 Do You Have Any Dietary Restrictions? No [id number] Information not available 04/07/2022 Do You Or Have You Ever Used Any Other Forms Of Tobacco Or Nicotine? No [id number] Information not available 04/07/2022 Sex: Unknown Functional Status Question Answer Note LastModified by Organizat ion Details LastModified Time What is your exercise level? Occasional [id number] Information not available 04/07/2022 Mental Status None recorded. Family History Relationship Description Onset Age of this Age Resolved Age Notes LastModified by Organization Details LastModified Time Father No current problems or disability [id number] Not available 04/07/2022 10:42:49 Mother No current problems or disability [id number] Not available 04/07/2022 10:42:49 Mother Endometriosi s (clinical) [id number] Not available 04/07/2022 10:42:49 Medical History No medical history recorded. Gynecological History Statement/Question Response Flow Moderate Date of LMP 02/13/2022 STIs/STDs N Dislike of Light during Menstrual Headac he Current Control Method BCPs Breast Problems no Frequency of Cycle (Q days) 7 Sexually Active? N Weight gain N Menses Monthly N Discharge no Obstetrics History GPAL:G 0 P 0 0 0 0 Immunizations Vaccine Type Date Status Note Provider Nam e and Address Organization Details Recorded Time Hib, unspecified formulation 3 completed Mita Roa APRN [address], [place], [address], [facility] 10/18/2023 11:02:30 Hib, unspecified formulation 4 completed Mita Roa APRN [address], [place], [address], [facility] 10/18/2023 11:02:31 Hib, unspecified formulation 3 completed Mita Roa APRN [address], [place], [address], [facility] 10/18/2023 11:02:31 meningococcal B, OMV 0 ирина Roa APRN [address], [place], [address], [facility] 10/18/2023 11:02:31 HPV9 7 ирина Roa APRN [address], [place], [address], [facility] 10/18/2023 11:02:31 HPV9 6 completed Mita Roa APRN [address], [place], [address], [facility] 10/18/2023 11:02:31 Influenza, MDCK, quadrivalent, PF 2 ирина Roa APRN [address], [place], [address], [facility] 10/18/2023 11:02:31 Influenza, live, trivalent, intranasal 7 ирина Roa APRN [address], [place], [address], [facility] 10/18/2023 11:02:31 MMR 4 completed Mita Roa APRN [address], [place], [address], [facility] 10/18/2023 11:02:31 MMR 8 completed Mita Roa APRN [address], [place], [address], [facility] 10/18/2023 11:02:31 COVID-19, mRNA, LNP-S, PF, 30 mcg/0.3 mL dose 1 completed Mita Roa APRN [address], [place], [address], [facility] 10/18/2023 11:02:31 COVID-19, mRNA, LNP-S, PF, 30 mcg/0.3 mL dose [address], [place], [address], [facility] 10/18/2023 11:02:31 COVID-19, mRNA, LNP-S, PF, 30 mcg/0.3 mL dose, radha-sucrose [address], [place], [address], [facility] 10/18/2023 11:02:31 COVID-19, mRNA, LNP-S, bivalent, PF, 30 mcg/0.3 mL dose 2 completed Mita Roa APRN [address], [place], [address], [facility] 10/18/2023 11:02:31 pneumococcal conjugate PCV 7 3 completed [address], [place], [address], [facility] 10/18/2023 11:02:31 pneumococcal conjugate PCV 7 4 completed Mita Roa APRN [address], [place], [address], [facility] 10/18/2023 11:02:31 pneumococcal conjugate PCV 7 3 completed [address], [place], [address], [facility] 10/18/2023 11:02:31 pneumococcal conjugate PCV 7 3 completed RANJEET [address], [place], [address], [facility] 10/18/2023 11:02:31 influenza, unspecified formulation 8 completed RANJEET [address], [place], [address], [facility] 10/18/2023 11:02:31 influenza, unspecified formulation 6 completed RANJEET [address], [place], [address], [facility] 10/18/2023 11:02:31 influenza, unspecified formulation 8 completed RANJEET [address], [place], [address], [facility] 10/18/2023 11:02:31 influenza, unspecified formulation 5 completed [address]JE[address], [place], [address], [facility] 10/18/2023 11:02:31 Tdap 4 completed Mita Roa APRN [address], [place], [address], [facility] 10/18/2023 11:02:31 varicella 4 completed Mita Roa APRN [address], [place], [address], [facility] 10/18/2023 11:02:31 varicella 8 completed RANJEET [address], [place], [address], [facility] 10/18/2023 11:02:31 Hep B, unspecified formulation 3 completed RANJEET [address], [place], [address], [facility] 10/18/2023 11:03:02 Hep B, unspecified formulation 4 completed RANJEET [address], [place], [address], [facility] 10/18/2023 11:02:31 Hep B, unspecified formulation [address], [place], [address], [facility] 10/18/2023 11:03:02 polio, unspecified formulation [address], [place], [address], [facility] 10/18/2023 11:02:31 polio, unspecified formulation [address], [place], [address], [facility] 10/18/2023 11:02:31 polio, unspecified formulation [address], [place], [address], [facility] 10/18/2023 11:02:31 polio, unspecified formulation [address], [place], [address], [place] [facility] 10/18/2023 11:02:31 meningococcal MCV4P 0 completed Mita Roa APRN [address], [place], [address], [facility] [employer] [facility] 10/18/2023 11:02:31 meningococcal MCV4P 4 completed Mita Roa APRN [address], [place], [address], [facility] [employer] [facility] 10/18/2023 11:02:31 DTaP, unspecified formulation 5 completed Mita Roa APRN [address], [place], [address], [facility] [employer] [facility] 10/18/2023 11:02:31 DTaP, unspecified formulation 3 completed Mita Roa APRN [address], [place], [address], [facility] [employer] [facility] 10/18/2023 11:03:02 DTaP, unspecified formulation 3 completed Mita Roa APRN [address], [place], [address], [facility] [employer] [facility] 10/18/2023 11:03:02 DTaP, unspecified formulation 8 completed Mita Roa APRN [address], [place], [address], [facility] [employer] [facility] 10/18/2023 11:02:31 DTaP, unspecified formulation 3 completed Mita Roa APRN [address], [place], [address], [facility] [employer] [facility] 10/18/2023 11:03:02 Hib-Hep B 3 completed Mita Roa APRN [address], [place], [address], [facility] [employer] [facility] 10/18/2023 11:03:01 Hib-Hep B [address], [place], [address], [facility] 10/18/2023 11:03:01 OPV 3 completed Mita Roa APRN [address], [place], [address], [facility] [facility] 10/18/2023 11:03:02 OPV [address], [place], [address], [facility] 10/18/2023 11:03:02 Hep B, adolescent or pediatric 3 completed [address]ANJEET River[address], [place], [address], [facility] 10/18/2023 11:03:02 DTaP 3 completed [address]JEET River[address], [place], [address], [facility] 10/18/2023 11:03:02 DTaP 3 completed Mita Roa APRN [address], [place], [address], [facility] 10/18/2023 11:03:02 DTaP 3 completed [address]ET [address], [place], [address], [facility] 10/18/2023 11:03:02 COVID-19 IV Non-US Vaccine (COVAXIN) 1 completed Not Available [facility] 04/07/2022 10:49:16 COVID-19 IV Non-US Vaccine (COVAXIN) 1 completed Not Available [facility] 04/07/2022 10:49:16 Influenza, split virus, quadrivalent, PF 1 completed Not Available [facility] 04/07/2022 10:49:17 Past Encounters Encounter ID Performer Location Encounter Start Date Encounter Closed Date Diagnosis/Indication Diagnosis SNOMED-CT Code Diagnosis ICD10 Code Diagnosis Note [id number] [facility] [place] [address] [place] [address] [address] [place] [address] 07/21/2020 00:00:00 07/21/2020 12:06:14 [id number] [facility] [place] [address] [place] [address] [address] [place] [address] 10/22/2020 00:00:00 10/22/2020 15:25:41 [id number] [facility] [place]le [address] [place] [address] [address] [place] [address] 01/29/2021 00:00:00 01/29/2021 13:33:10 [id number] [facility] [place] sebastiane [address] [place] [address] [address] [place] [address] 11/10/2021 00:00:00 11/10/2021 16:04:09 [id number] [facility] [place] [address] [place] [address] [address] [place] [address] 12/21/2021 00:00:00 12/21/2021 14:24:22 [id number] [facility] [place] [address] [place] [address] [address] [place] [address] 03/16/2022 00:00:00 03/16/2022 10:54:48 [id number] NADEEN Quiles [facility] [place] [address] [place] [address] [address] [place] [address] 04/08/2022 11:52:13 04/08/2022 12:44:22 Dysmenorrhea [id number] N94.6 ChronicNo longer managing with current ocps (Estarylla ). Pts mother has hx of endometrio sis. Changed to Sprintec pending yarn sizer appt, pt waiting to start until her next menstrual cycle. Migraine 86873743 G43.90 9 Improved with addition of topiramate Headache prevention techniques reviewed. Importance of lifestyle measures reviewed including managing stress, good sleep hygiene, avoiding headache triggers. Ensure take daily preventati ve meds, avoid overuse of headache treatment meds.Topir amate 25mg BID Vitamin D deficiency 347 84901 E55.9 New finding on labsVit D 30.4 (03/16/22)En couraged pt to start otc MV and D3 supplement Cobalamin deficiency 190 309432 E53.8 New finding on labsB12 394 (03/16/22)En couraged pt to start otc MV and D3 supplement [id number] BESSIE Blank [facility] Primary Care [facility] [address] [facility] [address] [place] [address] 08/18/2023 11:15:12 08/18/2023 11:43:14 Adult health examination [id number] Z00.00 The patient was advised to continue a healthy diet and exercise regularly. Labs will be sent to evaluate blood count, renal function lipids and vitamin D. Uses oral contraception 9010514 Z30.41 Mixed anxi ety and depressive disorder 049625196 F41.8 doing well on current medication , will continue to fill, follow up in 1 year. Renewal of prescription 083073832 Z76.0 doing well on current medication , will continue to fill, follow up in 1 year. Migraine 63635307 G43.90 9 doing well on current medication , will continue to fill, follow up in 1 year. Body mass index 30+ - obesity 600225001 Z68.37 discussed healthy weight and exercise. Patient will contact office in 1 month for f/u. Vitamin D deficiency 347 34675 E55.9 Hepatitis C screening 41 9488914 Z11.59 [id number] BESSIE Blank [facility] Primary Care [facility] [address] [facility] [address] [place] [address] 11/01/2023 12:09:22 11/01/2023 13:02:10 Nausea and vomiting 92198992 R11.2 Fever 347649451 R50.9 Health Concerns Section Related Observation LastModified by Organization Detai ls LastModified Time None Recorded Concern Status LastModified by Organization Details LastModified Time None Recorded Advance Directives Directive N: Payers Encounter Date Sequence Insurance Name Policy Number Policy Hughes Covered Member ID Hughes Member ID Guarantor Name 04/08/2022 1 [facility] [employer] [place] [id number] Dyana Ray 04/08/2022 2 [employer] (POS) [id number] Nathaniel Miranda [id number] Dyana Deyanirao 08/18/2023 1 [employer] [place] Ray [id number] Dyana Ray 08/18/2023 2 [employer] (POS) [id number] Nathaniel Miranda [id number] Dyana Deyanirao 11/01/2023 1 [employer]EFITS MANAG[employer] [place] Ray [id number] Dyana Mcmillano 11/01/2023 2 [employer] (POS) [id number] Nathaniel Miranda [id number] Dyana Ray Notes Date Note Type Note Provider Name and Address Organization Details Recorded Time 04/08/2022 text/html 04/08/22: 1. Pt in office for 4 week f/u on labs and med change. Pt reports she hasn't started new ocps yet, waiting until her cycle starts.2. Pt states no migraines since last visit. Doing well with topiramate. 03/16/22: 1. Pt in office for problem visit with c/o having severe cramps during her menstrual cycle. Pt states that she doesn't feel like her ocps are helping with that anymore.2. Pt states she is sleeping well, but feels like she has no energy for the past couple of weeks. Pt states she isn't taking any MV or anything. States no improvement despite working out at the gym for an hour 3x/week.3. Pt states she is feeling like the new medication (topiramate) is helping with her headaches. Bethany Herrera, [employer] [address] [facility], [facility] [address], [place], [address], [place] [facility] [employer] 04/08/2022 19:39:36 08/18/2023 text/html Patient is a 23 year old female that presents to the office for annual exam. Patient reports concerns with her weight. Pateint reports she has been steadily gaining weight with the inability to lose it. Patient reports she has been eating lean meats with fruits and vegetables and has increased her daily exercise habits without luck of weight loss. Patient denies all other medical concerns. Patient was hospitalized approximately 3 weeks ago for one week. Patient reports she was admitted for possible DKA however that ended up being incorrect. Patient requests labs to follow up. Patient reports extensive family history of diabetes. Patient sees PAY AGENT next month [id number] BESSIE Blank [address], [facility] [address], [place], [address], [employer] 08/18/2023 12:55:33 11/01/2023 text/html Patient is a 23 year old female that presents to the office for sick visit. Patient reports she has had nausea for one week, thought it was related to her Zepbound injection. Patient reports vomiting started on along with low grade fevers. Patient reports Tmax of 99-100, has been treating with Tylenol and Ibuprofen. Patient reports right ear pain, body aches and fatigue. Patient denies chest pain and shortness of breath, and diarrhea.Patient reports she has been able to keep fluids down along with crackers and broth.Patient went to on Tuesday in [place], Flu/Covid were negative, was given Zofran in clinic. BESSIE Blank [address], [address], [place], [address], [employer] 11/01/2023 12:29:57 OBGyn Episode No OBEpisode recorded.
--- OUTSIDE RECORDS SUMMARY | 2024-04-20 13:27 | XMS_ITS | Patient Health Summary ---
Author Organization [facility] Address [address] [facility] [place] [address] Care Team Providers Care Botany Teacher Name Role Phone Callie Julien MD Primary Care Provider [phone] Note from [facility],non-owned Affiliates and Associated Physician Practices is amultiple site organization consisting of ambulatory clinics and hospital sitesin [place], [place], [place] and [place]. This disclosure is being madepursuant to the Care Everywhere program and may not contain all information available regarding this patient. Last updated 17.[facility] Allergies No known active allergies Medications * Be aware that medications may not be up to date on this document. Alwaysverify current medications with the patient. * sertraline (ZOLOFT) 50 MG tablet Take 50 mg by mouth once daily * acetaminophen (TYLENOL) 325 MG tablet Take 325 mg by mouth every 4 hours as needed for Fever or Pain Maximum allowable Acetaminophen amount = 4 Grams (4000 mg) / 24 hours. * ibuprofen (MOTRIN) 400 MG tablet(Started 11/24/2017) Take 1 tablet by mouth every 6 hours as needed for Pain * SPRINTEC 28 0.25-35 MG-MCG tablet(Started 02/15/2018) Active Problems Problem Noted Date Diagnosed Date [...] Comments Blood Pressure 134/79 04/07/2018 9:45 AM FLORAL MANAGER Pulse 120 04/07/2018 9:45 AM FLORAL MANAGER Temperature 36.8 C (98.2 F) 04/07/2018 9:11 AM FLORAL MANAGER Respiratory Rate 16 04/07/2018 9:45 AM FLORAL MANAGER Oxygen Saturation 98% 04/07/2018 9:45 AM FLORAL MANAGER Inhaled Oxygen Concentration - - Weight 76.5 kg (168 lb 10.4 oz) 019 11:27 AM CDT Height 170.3 cm (5' 7.05 ) 05/03/2018 1 1:27 AM CDT Body Mass Index 26.38 05/03/2018 11:27 AM CDT Procedures * XR FINGERS LEFT 2VW OR MORE(Performed 04/07/2018) Performed for Preop examination * EXCISION LESION HAND/WRIST/FINGER(Performed 04/07/2018) Performed for Digital mucinous cyst of finger of left hand * HCG URINE QUAL POCT NOTIFICATION(Performed 04/07/2018) Performed for Preop examination * XR WRIST LEFT 3VW OR MORE(Performed 12/19/2017) Performed for Left wrist pain * XR WRIST LEFT 3VW OR MORE(Performed 11/24/2017) Performed for Wrist injury, left, initial encounter * XR HUMERUS RIGHT 2VW OR MORE(Performed 05/30/2017) Performed for Pain of right upper extremity * TSH(Performed 11/01/2016) * PHOSPHORUS BLOOD(Performed 11/01/2016) * MAGNESIUM BLOOD(Performed 11/01/2016) * COMPREHENSIVE METABOLIC PANEL(Performed 11/01/2016) * CBC W AUTO DIFFERENTIAL(Performed 11/01/2016) * XR CHEST 2VW(Performed 11/01/2016) Performed for Syncope, unspecified syncope type * EKG 15-LEAD(Performed 11/01/2016) Performed for Syncope, unspecified syncope type * GLUCOSE - POINT OF CARE(Performed 11/01/2016) * CT HEAD WO CONTRAST(Performed 03/21/2013) Performed for Headache Results * XR FINGERS LEFT 2VW OR MORE (04/07/2018 9:05 AM FLORAL MANAGER) Anatomical Region Laterality Modality Upper Extremity, Wrist / Hand Ra dank Fluoroscopy 04/07/2018 9:48 AM FLORAL MANAGER Impressions 04/07/2018 10:02 AM FLORAL MANAGER 5 intraoperative fluoroscopic C-arm spot radiographs of the first finger are submitted for interpretation and limited to the [id number]. No bony abnormalities are seen. Reading Radiologist: Danielle Mckinney MD on 04/07/2018 at 10:02 AM Narrative 04/07/2018 10:02 AM FLORAL MANAGER Exam: Left first finger, 5 views HISTORY: Ganglion cyst COMPARISON: Left wrist radiographs 12/19/2017 Procedure Note Danielle Mckinney MD - 04/07/2018 Exam: Left first finger, 5 views HISTORY: Ganglion cyst COMPARISON: Left wrist radiographs 12/19/2017 IMPRESSION 5 intraoperative fluoroscopic C-arm spot radiographs of the first finger are submitted for interpretation and limited to the [id number]. No bony abnormalities are seen. Reading Radiologist: Danielle Mckinney MD on 04/07/2018 at 10:02 AM Ambrosio Bonner MD DIAGNOSTIC IMAGING O RDERABLES * HCG URINE QUALITATIVE - POCT (IP) INTERFACED (04/07/2018 7:10 AM FLORAL MANAGER) Urine URINE / Unknown 04/07/2018 7 :10 AM FLORAL MANAGER 04/07/2018 7:10 AM FLORAL MANAGER Ambrosio Bonner MD LAB - POINT OF CARE ORDERABLES Performing Organization Address City/State/[facility] Co de Phone Number [facility] [address] [place] [address] * HCG URINE QUAL POCT NOTIFICATION (04/07/2018 6:44 AM FLORAL MANAGER) Comment Notification Label Only - See Separate Report 04/07/2018 8:00 AM FLORAL MANAGER [facility] Urine URINE / Unknown 04/07/2018 6 :44 AM FLORAL MANAGER 04/07/2018 6:44 AM FLORAL MANAGER Ambrosio Bonner MD LAB - URINALYSIS ORD ERABLES [facility] [place] [address] * XR WRIST LEFT 3VW OR MORE (12/19/2017 2:39 PM FLORAL MANAGER) Only the most recent of2 resultswithin the time period is included. Anatomical Region Laterality Modality Wrist / Hand Radiographic Ladi ging 12/19/2017 3:18 PM FLORAL MANAGER Impressions 12/19/2017 3:20 PM FLORAL MANAGER No acute or healing fracture. Reading Radiologist: Marcy Wilson MD on 12/19/2017 at 3:20 PM Narrative 12/19/2017 3:20 PM FLORAL MANAGER EXAMINATION: Left wrist 3 or more views HISTORY: Wrist pain. COMPARISON: 11/24/2017. FINDINGS: 5 views of the left wrist are obtained. No acute or healing fracture is identified. The joint spaces and alignment appear normal. Mild soft tissue edema is present about the left wrist. Bone mineralization is normal. There are no radiopaque foreign bodies. Procedure Note Marcy Wilson MD - 12/19/2017 EXAMINATION: Left wrist 3 or more views HISTORY: Wrist pain. COMPARISON: 11/24/2017. FINDINGS: 5 views of the left wrist are obtained. No acute or healing fracture is identified. The joint spaces and alignment appear normal. Mild soft tissue edema is present about the left wrist. Bone mineralization is normal. There are no radiopaque foreign bodies. IMPRESSION No acute or healing fracture. Reading Radiologist: Marcy Wilson MD on 12/19/2017 at 3:20 PM Elva Hector MD DIAGNOSTIC IMAGING ORDERABLES * XR HUMERUS 2+ VW RIGHT (05/30/2017 9:35 AM CDT) Anatomical Region Laterality Modality Upper Extremity Radiographic Ladi ging 05/30/2017 9:37 AM CDT Impressions 05/30/2017 9:39 AM CDT Normal Narrative 05/30/2017 9:39 AM CDT Right humerus, 2 views May 30, 2017 HISTORY: Fell off toward 1.5 months ago. Continued pain There is no fracture, dislocation, or abnormal bone production or destruction. Procedure Note Edson Mahajan MD - 05/30/2017 Right humerus, 2 views May 30, 2017 HISTORY: Fell off toward 1.5 months ago. Continued pain There is no fracture, dislocation, or abnormal bone production or destruction. IMPRESSION Normal Jesus Rojo MD DIAGNOSTIC IMAGING O RDERABLES * (ABNORMAL) CBC W AUTO DIFFERENTIAL (11/01/2016 2:06 PM CDT) WBC 6.6 4.5 - 14.5 x10E9/L 11/01/2016 2:25 PM CDT [facility] WBC Corrected x10E9/L 11/01/2016 2:25 PM CDT [facility] RBC 4.69 4.10 - 5.10 x10E12/L 11/01/2016 2:25 PM CDT [facility] Hemoglobin 14.0 12.0 - 16.0 gm/dL 11/01/2016 2:25 PM CDT [facility] Hematocrit 40.4 36.0 - 47.0 % 11/01/2016 2:25 PM CDT [facility] MCV 86.1 78.0 - 98.0 fl 11/01/2016 2:25 PM CDT [facility] MCH 29.9 25.0 - 35.0 pg 11/01/2016 2:25 PM CDT [facility] MCHC 34.7 31.0 - 37.0 gm/dL 11/01/2016 2:25 PM CDT [facility] Platelet Count 277 100 - 400 x10E9/L 11/01/2016 2:25 PM CDT [facility] RDW-CV 12.0 11.5 - 14.0 % 11/01/2016 2:25 PM CDT [facility] MPV 9.6(H) 6.0 - 9.5 fl 11/01/2016 2:25 PM CDT [facility] Neutrophils % 50.9 24.0 - 66.0 % 11/01/2016 2:25 PM CDT [facility] Lymphocytes % 36.8 22.0 - 61.0 % 11/01/2016 2:25 PM CDT [facility] Monocytes % 9.9 3.0 - 15.0 % 11/01/2016 2:25 PM CDT [facility] Eosinophils % 1.2 0.0 - 10.0 % 11/01/2016 2:25 PM CDT [facility] Basophils % 0.9 % 11/01/2016 2:25 PM CDT [facility] Immature Granulocytes 0.3 % 11/01/2016 2:25 PM CDT [facility] Neutrophil Absolute 3.34 x10E9/L 11/01/2016 2:25 PM CDT [facility] Lymphocytes Absolute 2.42 x10E9/L 11/01/2016 2:25 PM CDT [facility] Monocytes Absolute 0.65 x10E9/L 11/01/2016 2:25 PM CDT [facility] Eosinophils Absolute 0.08 x10E9/L 11/01/2016 2:25 PM CDT [facility] Basophils Absolute 0.06 x10E9/L 11/01/2016 2:25 PM CDT [facility] Immature Granulocytes Absolute 0.02 x10E9/L 11/01/2016 2:25 PM CDT [facility] nRBC Auto 0 /100 WBC 11/01/2016 2:25 PM CDT [facility] Blood BLOOD SPECIMEN / Unknown Venipuncture / Unknown 11/01/2016 2:06 PM CDT 11/01/2016 2:17 PM CDT Michael James MD LAB - HEMATOLOGY ORD ERABLES Performing Organization Address City/State/[facility] Co de Phone Number [facility] [address] [place] [address] * (ABNORMAL) COMPREHENSIVE METABOLIC PANEL (11/01/2016 2:06 PM CDT) [facility] Glucose 85 70 - 105 mg/dL 11/01/2016 2:38 PM CDT [facility] Sodium 139 136 - 145 mmol/L 11/01/2016 2:38 PM CDT [facility] Potassium 3.6 3.5 - 5.1 mmol/L 11/01/2016 2:38 PM CDT [facility] Chloride 102 98 - 107 mmol/L 11/01/2016 2:38 PM CDT [facility] CO2 27 20 - 28 mmol/L 11/01/2016 2:38 PM CDT [facility] Calcium 9.84 8.92 - 10.32 mg/dL 11/01/2016 2:38 PM T [facility] Anion Gap 10 5 - 20 mmol/L 11/01/2016 2:38 PM T [facility] BUN 15.5 6.1 - 21.0 mg/dL 11/01/2016 2:38 PM [facility] Creatinine 0.58(L) 0.62 - 1.00 mg/dL 11/01/2016 2:38 PM T [facility] Alkaline Phosphatase 117 100 - 390 U/L 11/01/2016 2:38 PM T [facility] ALT 16 8 - 65 U/L 11/01/2016 2:38 PM T [facility] AST 18 3 - 35 U/L 11/01/2016 2:38 PM [facility] Protein Total 7.7 6.4 - 8.5 gm/dL 11/01/2016 2:38 PM [facility] Albumin 4.5 3.3 - 5.0 gm/dL 11/01/2016 2:38 PM T [facility] Bilirubin Total 0.6 0.3 - 1.2 mg/dL 11/01/2016 2:38 PM [facility] eGFR by MDRD mL/min/1. 73m2 11/01/2016 2:38 PM [facility] Comment: eGFR calculations are not performed for children under 18 years old. eGFR by MDRD mL/min/1. 73m2 11/01/2016 2:38 PM [facility] Comment: eGFR calculations are not performed for children under 18 years old. Blood BLOOD SPECIMEN / Unknown Venipuncture / Unknown 11/01/2016 2:06 PM CDT 11/01/2016 2:20 PM T Michael James MD LAB - CHEMISTRY SHIRA LEIGH [facility] Organization Address City/State/ZIP Co de Phone Number [facility] [address] [place] [address] * PHOSPHORUS BLOOD (11/01/2016 2:06 PM CDT) Phosphorus 3.24 2.94 - 5.67 mg/dL 11/01/2016 2:38 PM [facility] Blood BLOOD SPECIMEN / Unknown Venipuncture / Unknown 11/01/2016 2:06 PM CDT 11/01/2016 2:20 PM CDT Michael James MD LAB - CHEMISTRY SHIRA LEIGH Performing Organization Address [facility]/ZIP Co de Phone Number [facility] [address] [place] [phone] * MAGNESIUM BLOOD (11/01/2016 2:06 PM CDT) Magnesium 2.3 1.7 - 2.3 mg/dL 11/01/2016 2:38 PM CDT [facility] Blood BLOOD SPECIMEN / Unknown Venipuncture / Unknown 11/01/2016 2:06 PM CDT 11/01/2016 2:20 PM CDT Michael James MD LAB - CHEMISTRY SHIRA LEIGH Performing Organization Address [facility] Co de Phone Number [facility] [address] [place] [phone] * TSH (11/01/2016 2:06 PM CDT) TSH 2.30 0.35 - 4.95 uIU/mL 11/01/2016 2:59 PM CDT [facility] Blood BLOOD SPECIMEN / Unknown Venipuncture / Unknown 11/01/2016 2:06 PM CDT 11/01/2016 2:20 PM CDT Michael James MD LAB - CHEMISTRY SHIRA LEIGH Performing Organization Address [facility] Co de Phone Number [facility] [address] [place] [phone] * XR CHEST PA AND LATERAL(most commonly ordered) (11/01/2016 1:50 PM CDT) Anatomical Region Laterality Modality Chest Radiographic Ladi ging 11/01/2016 1:58 PM CDT Impressions 11/01/2016 1:59 PM CDT Normal exam. Narrative 11/01/2016 1:59 PM CDT INDICATION: Syncope and collapse EXAMINATION: PA and lateral chest radiographs COMPARISON: 04/14/2007 FINDINGS: Lungs are symmetrically aerated and clear. Heart size, mediastinal contours and pulmonary vascularity are normal. Soft tissue and osseous structures are normal for age. Procedure Note Maverick Mcgowan MD - 11/01/2016 INDICATION: Syncope and collapse EXAMINATION: PA and lateral chest radiographs COMPARISON: 04/14/2007 FINDINGS: Lungs are symmetrically aerated and clear. Heart size, mediastinal contours and pulmonary vascularity are normal. Soft tissue and osseous structures are normal for age. IMPRESSION Normal exam. Michael James MD DIAGNOSTIC IMAGING O RDERABLES * EKG 15-LEAD (11/01/2016 1:26 PM CDT) Ventricular Rate 89 BPM CG MUSE Atrial Rate 89 BPM CG MUSE P-R Interval 132 ms CG MUSE QRS Duration ms 82 ms CG MUSE Q-T Interval ms 366 ms CG MUSE QTC Calculation (Bezet) 445 ms CG MUSE Calculated P Cashiers 43 degrees CG MUSE Calculated R Cashiers 60 degrees CG MUSE Calculated T Cashiers 42 degrees CG MUSE Interpretation EKG * Pediatric ECG Analysis * Normal sinus rhythm Normal ECG No previous ECGs available Confirmed by MD Jan, [facility] ([id number]) on 11/02/2016 11:28:58 AM CG MUSE 11/01/2016 1:26 PM CDT 11/02/2016 11:28 AM CDT Lucas Ramos MD ECG ORDERABLES CG MUSE * GLUCOSE - POINT OF CARE (11/01/2016 12:19 PM CDT) Pathologist [facility] Glucose WB/POC 81 70 - 106 mg/dL 11/01/2016 12:23 PM CDT [facility] Blood BLOOD SPECIMEN / Unknown 11/01/2016 12:19 PM CDT 11/01/2016 12:23 PM CDT Provider Unknown LAB - POINT OF CARE ORDERABLES [facility] [address] [place] [address] * CT HEAD NON CONTRAST (03/21/2013 11:43 AM FLORAL MANAGER) Anatomical Region Laterality Modality Head Computed Tomogra phy 03/21/2013 11:4 6 AM FLORAL MANAGER Impressions 03/21/2013 11:53 AM FLORAL MANAGER 1. No acute intracranial process. 2. Moderate paranasal sinus disease/acute sinusitis. These results were discussed with Durga in the emergency Department by Dr. Mixon on 03/21/2013 at 11:50 AM. Narrative 03/21/2013 11:53 AM FLORAL MANAGER EXAMINATION: Computed tomography (CT) of the head without contrast HISTORY: Headache. TECHNIQUE: CT of the head was performed without contrast according to standard protocol. FINDINGS: No prior study is available for comparison. No acute intra- or extra-axial fluid collections are identified. The ventricles are of normal size, shape, and morphology. The basal cisterns are patent. No mass effect or midline shift is seen. The altamirano-white matter differentiation is normal. Moderate mucosal thickening noted in the bilateral ethmoid, maxillary, and sphenoid sinuses with fluid-fluid levels in the maxillary sinuses. Otherwise, the visualized portions of the orbits, paranasal sinuses, and mastoids appear normal. No acute fracture is identified. Procedure Note Dagoberto Mixon MD - 03/21/2013 EXAMINATION: Computed tomography (CT) of the head without contrast HISTORY: Headache. TECHNIQUE: CT of the head was performed without contrast according to standard protocol. FINDINGS: No prior study is available for comparison. No acute intra- or extra-axial fluid collections are identified. The ventricles are of normal size, shape, and morphology. The basal cisterns are patent. No mass effect or midline shift is seen. The altamirano-white matter differentiation is normal. Moderate mucosal thickening noted in the bilateral ethmoid, maxillary, and sphenoid sinuses with fluid-fluid levels in the maxillary sinuses. Otherwise, the visualized portions of the orbits, paranasal sinuses, and mastoids appear normal. No acute fracture is identified. IMPRESSION 1. No acute intracranial process. 2. Moderate paranasal sinus disease/acute sinusitis. These results were discussed with Durga in the emergency Department by Dr. Mixon on 03/21/2013 at 11:50 AM. Lisa Porter MD CT ORDERABLES Care Teams Botany Teacher Relationship Specialty Start Date End Date Callie Julien MD [address] [phone] PCP - General Pediatrics 03/21/13
--- OUTSIDE RECORDS SUMMARY | 2024-04-20 13:29 | XMS_ITS | Clinical Summary ---
Author Organization [facility] [address] [facility] Address [address] [place] [address] Care Team Providers Care Bowl Turner Name Role Phone Bethany Herrera NP Primary Care Provider [phone] Allergies Active Allergy Reactions Criticality Noted Date Comments Sulfa (Sulfonamide Antibiotics) Hives,Itching Medium 0 03/30/2022 Medications norgestimate-ethin yl estradioL (ORTHO-CYCLEN) 0.25-35 mg-mcg per tablet 02/15/19 19 Active sertraline (ZOLOFT) 100 mg tablet Take 1.5 tablets (150 mg total) by mouth daily 03/09/19 23 Active topiramate (TOPAMAX) 25 mg tablet Take 1 tablet (25 mg total) by mouth 2 (two) times a day 03/02/19 23 Active traZODone (DESYREL) 100 mg tablet Take 1 tablet (100 mg total) by mouth nightly at bedtime. 01/18/20 22 Active azithromycin (ZITHROMAX) 250 mg tabletIndications: Bacterial URI Take two tabs first day, then one tab daily x 4 days 6 tablet 06/17/19 23 Active Additional Information Patient not taking.Reported on 07/01/2022 amoxicillin-clavul anate (Augmentin) 875-125 mg per tablet Take 1 tablet by mouth 2 (two) times a day 20 tablet 04/13/19 24 Active Additional Information Patient not taking.Reported on 05/24/2023 nitrofurantoin monohydrate (MACROBID) 100 mg capsule Take 1 capsule (100 mg total) by mouth 2 (two) times a day 14 capsule 05/04/19 Active Additional Information Patient not taking.Reported on 05/24/2023 naproxen (NAPROSYN) 500 mg tablet Take 1 tablet (500 mg total) by mouth 2 (two) times a day as needed for pain Take with food. 30 tablet 05/04/19 Active Additional Information Patient not taking.Reported on 10/29/2023 benzonatate (TESSALON) 200 mg capsuleIndications :Bronchitis Take 1 capsule (200 mg total) by mouth 3 (three) times a day as needed for cough 42 capsule 05/24/19 Active Additional Information Patient not taking.Reported on 10/29/2023 albuterol HFA (PROVENTIL HFA,VENTOLIN HFA,PROAIR HFA) 90 mcg/actuation inhalerIndications :Bronchitis Inhale 2 puffs every 4 (four) hours as needed for wheezing 1 each 05/24/19 Active Additional Information Patient not taking.Reported on 10/29/2023 ondansetron ODT (ZOFRAN-ODT) 4 mg disintegrating tablet Take 1 tablet (4 mg total) by mouth every 8 (eight) hours as needed for nausea or vomiting 20 tablet 07/18/19 Active Additional Information Patient not taking.Reported on 10/29/2023 Active Problems Problem Noted Date Diagnosed Date Fever 01/24/2023 Sore throat 01/24/2023 COVID-19 09/22/2022 Cobalamin deficiency 04/07/2022 Dysmenorrhea 04/07/2022 Migraine 04/07/2022 Vitamin D deficiency 04/07/2022 Anxiety 07/21/2020 Depressive disorder 07/21/2020 Thumb pain, left 05/03/2018 Cyst of joint of hand, left 02/06/2018 Encounters Date Type Department Care Team Description 02/09/2024 11:30 AM DIRECTOR TITLE E-Visit [facility] Virtual Care [address] [place] [phone] Annalise Austin NP E-Visit for Sinus 02/09/2024 Patient Self-Triage [facility] [address] [place] [phone] Hermelinda, Generic Provider from Last 3 Months Immunizations Immunization Administration Dates Next Due DTaP 2002,2002,2002 DTaP, Unspecified 08/23/2007, 5,2002,07/19,2002 HPV9 10/20/2016,12/09/2015 Hep B / HiB 2002,2002 Hep B, Adolescent or Pediatric 2002 Hep B, Unspecified 07/11/2003,2002, 003 HiB 07/11/2003,2002,2002 Influenza LAIV (Nasal) 11/17/2006 Influenza, Quadrivalent, Nicole l Culture-based MDCK, Preservative Free, Antibiotic Free, Intramuscular 12/16/2021 Influenza, Quadrivalent, Spl it, Preservative Free, Intramuscular 01/29/2021 Influenza, Unspecified 10/31/2017,2007,12/09/2005,01/20 MMR 08/23/2007,04/11/2003 Meningococcal B, OMV (Bexsero) 09/05/2019 Meningococcal MCV4P (Menactra) 09/05/2019,2013 OPV 2002,2002 Pneumococcal Conjugate 7-Valent 07/11/19 04,2002,2002,05/18 Polio, Unspecified 08/23/2007, 5,2002,05/18 Tdap 10/10/2013 Varicella 08/23/2007,04/11/2003 Surgical History Surgery Date Site/Laterality Comments NO PAST SURGERIES Medical History Medical History Date Comments Migraines Family History Medical History Relation Name Comments No Known Problems Father No Known Problems Mother Crohn's disease Paternal Grandfather Diabetes Paternal Grandmother Relation Name Status Comments Father Alive Mother Alive Paternal Grandfather Paternal Grandmother Alive Social History Tobacco Use Types Packs/Day Years Used Date Smoking Tobacco: Never Smokeless Tobacco: Never Personal Safety Answer Date Recorded Have you ever been in or are you currently in a harmful physical or emotional relationship or is someone making you feel afraid or unsafe? Denies 07/20/2023 Comments No Sex and Gender Information Value Date Recorded Sex Assigned at Not on file Legal Sex Female 11:26 PM DIRECTOR TITLE Gender Identity Not on file Sexual Orientation Not on file Obstetrics History Last Filed Vital Signs Vital Sign Reading Time Taken Comments Blood Pressure 108/72 10/29/2023 11:15 AM CDT Pulse 108 10/29/2023 11:15 AM CDT Temperature 36.9 C (98.4 F) 10/29/2023 11:15 AM CDT Respiratory Rate 20 10/29/2023 11:15 AM CDT Oxygen Saturation 97% 10/29/2023 11:15 AM CDT Inhaled Oxygen Concentration - - Weight 95.8 kg (211 lb 3.2 oz) 10/29/2023 11:15 AM CDT Height 170.2 cm (5' 7 ) 07/18/2023 5:31 AM CDT Body Mass Index 33.08 07/18/2023 5:31 AM CDT Plan of Treatment Health Maintenance Due Date Last Done Comments Cervical Cancer Screening 2002 Depression Screening 2002 Hepatitis C Screening 2002 Meningococcal B Vaccine (2 o f 2 - Bexsero SCDM 2-dose series) 03/07/2020 09/05/2019 Regular Well Visit/Exam 18-64 2020 Covid-19 Vaccine (5 - 2023-2 5 season) 2023 12/16/2021, 08/17/2021, 04/02/2020, Additional history exists Influenza Vaccine (#1) 2023 , 01/29/2021, 10/31/2017, Additional history exists DTaP/Tdap/Td Vaccine (7 - Td or Tdap) 10/11/2023 10/10/2013, 08/23/2007, 03/11/2004, Additional history exists Hepatitis B Screening Completed 07/11/2003 , 2002, 2002, Additional history exists Pneumococcal vaccine <65 Completed 004, 2002, 2002, Additional history exists Varicella Vaccines Completed 08/23/2007, 04/11/2003 HPV Vaccines Completed 10/20/2016, 12/09/2015 Insurance [facility] [employer] H[employer] [facility] [employer] H[employer] Care Teams Bowl Turner Relationship Specialty Start Date End Date Bethany Herrera NP PCP - General Internal Medicine 07/01/22
--- OUTSIDE RECORDS SUMMARY | 2024-04-20 13:29 | XMS_ITS | Referral Summary ---
Author Organization [facility] Address [address] [place] [address] Care Team Providers Care Depot Manager Name Role Phone Bethany Herrera MANAGER WELDING Primary Care Provider [phone] Encounters Date Type Department Care Team Description 02/09/2024 11:30 AM GROUND SUPPORT AGENT E-Visit [facility] Medical Group Virtual Care [address] [place] [phone] Annalise Austin NP E-Visit for Sinus 02/09/2024 Patient Self-Triage [facility] HealthCare/[facility] [place] [address] Mychart, Generic Provider from Last 3 Months Allergies Active Allergy Reactions Criticality Noted Date [...] (two) times a day 14 capsule 05/04/19 24 Active Additional Information Patient not taking.Reported on 05/24/2023 naproxen (NAPROSYN) 500 mg tablet Take 1 tablet (500 mg total) by mouth 2 (two) times a day as needed for pain Take with food. 30 tablet 05/04/19 24 Active Additional Information Patient not taking.Reported on 10/29/2023 benzonatate (TESSALON) 200 mg capsuleIndications :Bronchitis Take 1 capsule (200 mg total) by mouth 3 (three) times a day as needed for cough 42 capsule 05/24/19 24 Active Additional Information Patient not taking.Reported on 10/29/2023 albuterol HFA (PROVENTIL HFA,VENTOLIN HFA,PROAIR HFA) 90 mcg/actuation inhalerIndications :Bronchitis Inhale 2 puffs every 4 (four) hours as needed for wheezing 1 each 05/24/19 24 Active Additional Information Patient not taking.Reported on 10/29/2023 ondansetron ODT (ZOFRAN-ODT) 4 mg disintegrating tablet Take 1 tablet (4 mg total) by mouth every 8 (eight) hours as needed for nausea or vomiting 20 tablet 07/18/19 24 Active Additional Information Patient not taking.Reported on 10/29/2023 Active Problems Problem Noted Date Diagnosed Date Fever 01/24/2023 Sore throat 01/24/2023 COVID-19 09/22/2022 Cobalamin deficiency 04/07/2022 Dysmenorrhea 04/07/2022 Migraine 04/07/2022 Vitamin D deficiency 04/07/2022 Anxiety 07/21/2020 Depressive disorder 07/21/2020 Thumb pain, left 05/03/2018 Cyst of joint of hand, left 02/06/2018 Immunizations Immunization Administration Dates Next Due DTaP [...] Unspecified 08/23/2007, 5,2002,05/18 Tdap 10/10/2013 Varicella 08/23/2007,04/11/2003 Social History Tobacco Use Types Packs/Day Years [...] on file Legal Sex Female 11:26 PM GROUND SUPPORT AGENT Gender Identity Not on file Sexual Orientation [...] 07/18/2023 5:31 AM CDT Plan of Treatment Not on file Insurance [facility] HMO/O Address[facility] [id number] [place] [address] [facility] H[facility] HMO Care Teams Depot Manager Relationship Specialty Start Date End Date Bethany Herrera NP PCP - General Internal Medicine 07/01/22
[2024-04-20 13:33] VITALS: BP 120/80; PULSE 79; RESP 16; TEMP 36.5; O2SAT 100
--- NOTE | 2024-04-20 13:34 | ED_ITS ---
HPI - Extremity Injury (Lower) General Chief Complaint: Extremity Injury, Lower Stated Complaint: pain in left knee Time Seen by Provider: 04/20/24 14:05 Source: patient and RN notes reviewed Mode of arrival: ambulatory Limitations: no limitations History of Present Illness HPI Narrative: 24-year-old female presents with concern for left knee pain. Reports 1 week ago she was helping move a couch when her knee bent and twisted in an unusual position. She reports since then she has had pain with bending and weight- bearing. Denies pain at rest. Denies swelling, redness, warmth. She has been taking ibuprofen 3 times a day. complaint: knee injury Related Data Home Medications ?Medication ?Instructions ?Recorded ?Confirmed ?Last Taken ?Type sertraline 100 mg tablet 150 mg PO DAILY 06/25/21 04/20/24 Unknown History trazodone 100 mg tablet 100 mg PO HS 06/25/21 04/20/24 Unknown History topiramate 25 mg tablet 25 mg PO BID 09/22/22 04/20/24 Unknown History norgestimate 0.25 mg-ethinyl 1 tablet PO DAILY 11/29/22 04/20/24 Unknown History estradiol 35 mcg tablet (Sprintec (28)) tirzepatide (weight loss) 5 mg/0.5 mg subcut 04/20/24 Unknown History mL subcutaneous pen injector (Zepbound) Allergies Allergy/AdvReac Type Severity Reaction Status Date / Time Sulfa (Sulfonamide Allergy Hives Verified 04/20/24 13:28 Antibiotics) Review of Systems Review of Systems: CONSTITUTIONAL: Denies malaise, chills, sweats, or fever. SKIN: Denies rash or itching, open skin, laceration, abrasion, redness, warmth, swelling. MUSCULOSKELETAL: Reports left knee pain NEUROLOGIC: Denies numbness, weakness All systems reviewed & are unremarkable except as noted in HPI and below PMFSH Past Medical History Medical History No pertinent past medical history Surgical History Surgical History No pertinent past surgical history Family History Family History Mother Family history non-contributory Social History Social History Tobacco type: e-cigarettes/vaping Living arrangements: with family Additional occupation/education comments: works in pharmacy Gender identity (if verbalized by the patient): Female Spiritual care concerns: No Comments At time of signature, agree with nursing past medical, surgical, social and family history. There is no relevant family history pertinent to the presenting complaint Exam Narrative: GENERAL: Well-appearing, well-nourished, and in no acute distress. HEAD: Normocephalic, atraumatic. EYES: PERRLA, conjunctivae clear NECK: Supple. CHEST: Speaks in full sentences. No respiratory distress. HEART: Regular rate and rhythm. Normal and equal peripheral pulses. EXTREMITIES: Left lower extremity has grossly normal strength and sensation, grossly normal range of motion. No edema or ecchymosis. 5/5 strength with knee flexion and extension. Normal sensation with sensitivity to light touch and pain. No point tenderness. No open wounds, no skin tenting, no devitalized tissu e or atrophy, no trophic changes, no obvious deformity, alignment normal, nearby joints and structures intact. Distal pulses palpable and equal bilaterally, skin warm, dry, pink. Capillary refill less than 3 seconds. SKIN: Warm, dry, no rash. NEURO: Alert and oriented x3. PSYCH: Normal mood and affect Course Course Emergency Course: Patient is aware of diagnosis, understands and agrees to treatment plan. Anticipatory guidance given. Patient agrees to follow-up as directed and is aware of reasons to seek care at the emergency department. Portions of this record may have been created with voice recognition software Level of Care: Express Care Visit Vital Signs Vital signs: Reviewed. MDM - Extremity Injury (Lower) MDM Narrative Medical decision making narrative: Patients injury and pain is consistent with musculoskeletal etiology. No signs of neurological or vascular compromise on exam. Compartments and tissues are soft without signs of compartment syndrome. Pain is felt appropriate for further evaluation on an outpatient basis. Imaging Data Radiologist's impression: EXAMINATION: XR knee LT min 4V DATE: 04/20/2024 14:08 INDICATION: Left knee injury. TECHNIQUE: 4 views of left knee were obtained. COMPARISON: None. FINDINGS: Alignment is normal. No fracture. Joint spaces are normal. No knee joint effusion. IMPRESSION: 1. Normal left knee. Critical Care Time Critical Care Time Critical Care Time: No Discharge Plan Discharge Clinical Impression: Acute knee pain Patient Disposition: Home, Self-Care Condition: Stable Instructions: Knee Sprain (ED) Additional Instructions: Your x-ray looks normal Avoid activities that cause pain until the pain subsides. Ice to the area 20-30 minutes 4-6 times a day Elevate above heart Elastic wrap as directed for comfort for the next 5-7 days Tylenol for lesser pain Ibuprofen regularly for the next 2-3 days for the inflammation Follow up with your primary care provider or orthopedics if the condition is not improving within 1 week. If the condition worsens with numbness, tingling, decrease sensation with weakness seek treatment in the emergency room immediately. Patient Language: Lao Prescriptions: New ibuprofen 800 mg tablet 800 mg PO Q6H PRN (Reason: pain) Qty: 30 0RF No Action norgestimate-ethinyl estradiol [Sprintec (28)] 0.25-35 mg-mcg tablet 1 tablet PO DAILY topiramate 25 mg tablet 25 mg PO BID Zepbound 5 mg/0.5 mL pen injector SUBCUT sertraline 100 mg tablet 150 mg PO DAILY trazodone 100 mg tablet 100 mg PO HS Follow-up/Referrals: Corrine,Leslie Murcia NP [Primary Care Provider] - Stand Alone Forms: Work/School Release IP Time of Disposition: 14:20
== END 2024-04-20 14:26 | disposition home or self-care (01) ==
PROVIDERS: Emergency Provider Nurse Practitioner; PCP Nurse Practitioner Family
DX: M25.562 Pain in left knee (principal); F17.290 Nicotine dependence, other tobacco product, uncomplicated; Z79.899 Other long term (current) drug therapy
CPT/HCPCS: 73564; 99213; G0463

== ENCOUNTER 2024-06-21 14:36 | Emergency (ER) | payer OTHER, SELFPAY ==
--- OUTSIDE RECORDS SUMMARY | 2024-06-21 14:40 | XMS_ITS | Clinical Summary ---
Author Organization [facility] Address [address] [place] [address] Care Team Providers Care Mine Expert Name Role Phone Callie Julien MD Primary Care Provider Source Comments [facility],non-owned Affiliates and Associated Physician Practices is amultiple site organization consisting of ambulatory clinics and hospital sitesin [place], [place], [place] and [place]. This disclosure is being madepursuant to the Care Everywhere program and may not contain all information available regarding this patient. Last updated 17.[facility] Allergies No known active allergies Medications * Be aware that medications may not be up to date on this document. Alwaysverify current medications with the patient. sertraline (ZOLOFT) 50 MG tablet Take 50 [...] hours as needed for Pain 30 tablet 8 Active SPRINTEC 28 0.25-35 MG-MCG tablet 9 Active Active Problems Problem Noted Date Diagnosed Date Thumb pain, left 05/03/2018 Cyst of joint of hand, left 02/06/2018 Social History Tobacco Use Types Packs/Day Years Used Date Smoking Tobacco: Passive Smo ke Exposure - Never Smoker Smokeless Tobacco: Never Alcohol Use Standard Drinks/Week Comments No 0 (1 standard drink = 0.6 oz pur e alcohol) Comments No Sex and Gender Information Value Date Recorded Sex Assigned at Not on file Legal Sex Female 5:46 AM OTORHINOLARYNGOLOGIST Gender Identity Not on file Sexual Orientation Not on file Last Filed Vital Signs Vital Sign Reading Time Taken Comments Blood Pressure 134/79 04/07/2018 9:45 AM OTORHINOLARYNGOLOGIST Pulse 120 04/07/2018 9:45 AM OTORHINOLARYNGOLOGIST Temperature 36.8 C (98.2 F) 04/07/2018 9:11 AM OTORHINOLARYNGOLOGIST Respiratory Rate 16 04/07/2018 9:45 AM OTORHINOLARYNGOLOGIST Oxygen Saturation 98% 04/07/2018 9:45 AM OTORHINOLARYNGOLOGIST Inhaled Oxygen Concentration - - Weight 76.5 kg (168 lb 10.4 oz) 019 11:27 AM CDT Height 170.3 cm (5' 7.05 ) 05/03/2018 1 1:27 AM CDT Body Mass Index 26.38 05/03/2018 11:27 AM CDT Plan of Treatment Health Maintenance Due Date Last Done Comments HIV SCREENING 2017 HPV VACCINE (1 - 3-dose series) 2017 CHLAMYDIA/GONORRHEA SCREENING 2018 MENINGOCOCCAL (Group B) VACC INE SHARED DECISION-MAKING (1 of 2 - Standard) 2018 HEPATITIS C SCREENING 03/19/2020 DTAP/TDAP/TD VACCINES (1 - Tdap) 2021 HEPATITIS B VACCINE (1 of 3 - 19+ 3-dose series) 2021 COVID-19 VACCINE (1 - 2023-2 5 season) 2023 DEPRESSION SCREENING 02/08/2024 INFLUENZA VACCINE (Season Ended) 2024 ZOSTER VACCINE (1 of 2) 2052 HIB VACCINE Aged Out No longer eligi ble based on patient's age to complete this topic MENINGOCOCCAL GROUPS A/C/Y/W VACCINE Aged Out No longer eligible b ased on patient's age to complete this topic PNEUMOCOCCAL VACCINE Aged Out No long er eligible based on patient's age to complete this topic Insurance AETNA AETNA AETNA AETNA AETNA AETNA Care Teams Mine Expert Relationship Specialty Start Date End Date Callie Julien MD [address] [place] [address] PCP - General Pediatrics 03/21/13
--- OUTSIDE RECORDS SUMMARY | 2024-06-21 14:40 | XMS_ITS | Encounter Summary ---
Author Organization [facility] Address [address] [place]: Epic Prelude AD[facility] [place] [address] Care Team Providers Care Learning Support Teacher Name Role Phone Unavailable Primary Care Provider Unavailabl e Encounter Details Date Type Department Care Team (Late st Contact Info) Description 2002 Inpatient Historical Betzaida Olsen MD NO ADDRESS ON FILE Anu Hodge MD [address] [address] [facility] B[facility] IN [facility] C/DELIVERY (Primary Dx) Social History Tobacco Use Types Packs/Day Years Used Date Smoking Tobacco: Never Assessed Comments Unknown Sex and Gender Information Value Date Recorded Sex Assigned at Not on file 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
--- OUTSIDE RECORDS SUMMARY | 2024-06-21 14:40 | XMS_ITS | Data Portability ---
Author Organization [facility] De Correspondent, Main Office Address [address] [place] [address] Assessment No assessment recorded. Plan of Treatment Reminders Order Date Submit Date Provider Last Modified By Organization Details Last Modified Time Details Appointments None recorded. Lab CMP, serum or plasma 2024 025 tessie Wetzel [facility], [address] [place], [address], 5 08:18:36 CBC w/ auto diff 2024 025 [facility], [address] [place], [address], 5 08:18:36 lipase, serum or plasma 2024 025 [facility] [place] [facility], [address] [place], [address], 5 08:18:36 amylase, serum or plasma 2024 025 [facility] [place] [facility], [address] [place], [address], 5 08:18:37 ESR (erythrocyt e sedimentati on rate), blood 2024 025 [facility] [address] [facility], [address] [place], [address], 5 08:18:37 rapid strep group A, throat 2023 024 KARNE [facility] [address], [place], [address], 4 12:26:02 glycohemogl obin, total, blood [address] (Lab), [address] [place], [address], 4 08:07:38 CBC w/ auto diff [address] (Lab), [address] [place], [address], 4 08:07:38 CMP, serum or plasma [address] (Lab), [address] [place], [address], 4 08:07:38 lipid panel, serum [address] (Lab), [address] [place], [address], 4 08:07:38 TSH, serum, reflex free T4 [address] (Lab), [address] [place], [address], 4 08:07:38 vitamin D, 25-hydroxy, total, serum [address] (Lab), [address] [place], [address], 4 08:07:38 hepatitis C virus Ab, serum [address] (Lab), [address] [place], [address], 4 08:07:39 Referral None recorded. Procedures None recorded. Surgeries None recorded. Imaging US, abdomen, complete - Please call patient to schedule 2024 [email or web address] [facility] ([facility]), [address] [place], [address], 5 14:26:28 Medication Orders ondansetron 4 mg disintegrat ing tablet [address] [facility]47808, [address], [place], [place], [id number], 5 17:05:11 famotidine 20 mg tablet 2024 025 [place] [facility] #39237, [address], [place], [place], [id number], 5 17:05:10 ondansetron 4 mg disintegrat ing tablet 2023 024 DURAN[place] [facility] #55079, [address], [place], [place], [id number], 4 12:25:03 Sprintec (28) 0.25 mg-0.035 mg tablet 2023 024 [place] [facility] #75897, [address], [place], [place], [id number], 4 11:49:04 sertraline 100 mg tablet 2023 024 [place] [facility] #82890, [address] [place], [id number], 4 11:48:51 trazodone 100 mg tablet 2023 024 D[place] [facility] #05976, [address] [facility] [place], [id number], 4 11:48:57 topiramate 25 mg tablet 2023 024 [facility] #73709, [address], [place], [place], [id number], 4 11:48:48 Zepbound 2.5 mg/0.5 mL subcutaneou s pen injector 2023 024 3 [facility] #62704, [address], [place], [place], [id number], 4 11:11:25 Patient TargetsNo targets recorded. Patient InstructionsNo instructions recorded. Reason for Referral None Reported. Results Created Date Observation Date Name Description Value Unit Range Abnormal Flag Note LastModifiedBy Organization Detail LastModifiedTime 11/01/1911/01/2023 rapid strep group A, throa t STREP A negati ve Not Available [facility] [address], [place], [address], 11/01/2023 12:24:42 11/02/1911/02/2023 XR, chest , 2 view No observ ation record ed. [email or web address], [place], [address], 11/02/2023 14:29:47 04/21/1904/20/2024 XR, knee, 4 or more view No observ ation record ed. [email or web address] [facility] [address], [place], [address], 04/21/2024 13:51:58 Result Notes None recorded. Problems Name Problem SNOMED Code Status Onset Date Resolution Date Notes Provider Name and Address Organization Details Recorded Time Depressive disorder 03138456 Active 2020 Not Available [facility] 10:45:41 Anxiety 04943272 Active 2020 Not Available [employer] 3 10:45:41 Dysmenorrh ea 839375644 Active 2022 NADEEN Quiles [address], [place], [address] , [employer] [facility] De Correspondent 3 12:03:48 Migraine 32550444 Active 2022 NADEEN Quiles [address], [address], [place], [address] , [employer] 3 12:05:05 Vitamin D deficiency 80858798 Active 2022 NADEEN Quiles [address], [address], [place], [address] , [employer] [facility] De Correspondent 3 12:09:43 Cobalamin deficiency 665959037 Active 2022 NADEEN Quiles [address], [place], [address] , [employer] [facility] De Correspondent 3 12:09:49 COVID-19 443867925 Active 2022 Allyson Mckee MD [address], [address], [place], [address] , [employer] [facility] De Correspondent 3 13:13:31 Sore throat 934105377 Active 2022 Gabbie Yanez LPN null, [facility] [employer] [facility] 3 11:16:10 Fever 112898417 Active 2022 Allyson Mckee MD [address], [place], [address] , [employer] [facility] [employer] [facility] 3 11:54:20 Mixed anxiety and depressive disorder 452064213 Active 2023 BESSIE Blank [address], [place], [address] , [facility] [employer] [facility] [employer] [facility] 4 11:46:16 Nausea and vomiting 25070008 Active 2023 [address]ESSIE Blank [address], [place], [address] , [facility] 4 14:36:48 Pain in left foot 9256484841846 07 Active 2024 BESSIE Blank [address], [place], [address] , [facility] 5 19:11:20 Abdominal pain 01230874 Active 2024 BESSIE Blank [address], [place], [address] , [facility] [employer] 5 17:03:42 Problem Notes None recorded. Procedures Surgical History Date Name Laterality Status Provider Name and Address Organization Details Recorded Time open reduction of fracture with internal fixation completed Not Available [facility] 04/07/2022 10:42:48 Imaging Results Imaging Date Name Status LastModified by Organiz ation Details LastModified Time 11/02/2023 XR, chest, 2 view completed [address], [place], [address], 11/02/2023 14:29:47 04/20/2024 XR, knee, 4 or more view completed [address], [place], [address], 04/21/2024 13:51:58 Procedure Notes None recorded. Medical Equipment None Reported. Allergies Allergen ID Allergen Name Allergen Category Reaction Reaction Severity Criticality Documentation Date Start Date Code Code System Note Provider Name and Address Organization Details Recorded Time 05248 Substance with sulfonami de structure and antibacte rial mechanism of action (substanc e) medicatio n hives severe Not available 04/07/2022 99880 8003 SNOMED Not Available [facility] 10:49:27 Medications Name Sig Start Date Stop Date Status Note LastModified by Organization Details LastModified Time cyclobenzap rine 10 mg tablet TAKE 1 TABLET BY MOUTH THREE TIMES DAILY NEEDED FOR MUSCLE SPASM 08/17 completed Not Available Not Available Not Available amoxicillin 500 mg capsule 05/14 completed Not Available Not Available Not Available [...] tablet TAKE 1 TABLET BY MOUTH EVERY 6 HOURS NEEDED FOR PAIN 05/14 completed Not Available Not Available Not Available benzonatate 200 mg capsule Take 1 capsule 3 times a day by oral route as needed. 05/14 completed Not Available Not Available Not Available [...] completed Not Available Not Available Not Available famotidine 20 mg tablet TAKE 1 TABLET BY MOUTH EVERY DAY active Not Available Not Available No t Available methocarbam ol 750 mg tablet TAKE [...] Not Available Not Available Sprintec (28) 0.25 mg-0.035 mg tablet TAKE 1 TABLET BY MOUTH [...] completed Not Available Not Available Not Available Verna 08/17 completed Not Available Not Available Not [...] 2.5 mg/0.5 mL subcutaneou s pen injector active [...] % 99 % 91 /min 97.5 [degF] 621319. 69 g 120 mm[Hg] 78 mm[Hg] Not Available [facility] 3 10:43:06 Date Recorded Body height Body mass index (BMI) Percentile per age and sex Body mass index (BMI) Body weight Body temperature Heart rate Oxygen saturation Oxygen saturation in Arterial blood by Pulse oximetry Systolic blood pressure Diastolic blood pressure Provider Name and Address Organization Details Last Updated DateTime 3 172.72 cm 97 % 35 kg/m2 651855. 25 g 97.6 [degF] 86 /min 98 % 98 % 126 mm[Hg] 82 mm[Hg] Tere Sue MA [facility] De Correspondent 3 11:58:58 Date Recorded Body weight Body temperature Oxygen saturation Oxygen saturation in Arterial blood by Pulse oximetry Heart rate Systolic blood pressure Diastolic blood pressure Provider Name and Address Organization Details Last Updated DateTime 4 008744. 13 g 98.1 [degF] 99 % 99 % 100 /min 134 mm[Hg] 82 mm[Hg] Solange Howe RN [facility] De Correspondent 4 11:24:00 Date Recorded Body mass index (BMI) Body height Provider Name and Address Organization Details Last Updated DateTime 08/18/2023 37.3 kg/m2 172.72 cm BESSIE Blank [address] [place] [address], [facility] [address], [place], [address], [facility] De Correspondent 08/18/2023 11:44:18 Date Recorded Body height Body temperature Oxygen saturation Oxygen saturation in Arterial blood by Pulse oximetry Heart rate Systolic blood pressure Diastolic blood pressure Provider Name and Address Organization Details Last Updated DateTime 4 172.72 cm 98.2 [degF] 98 % 98 % 112 /min 128 mm[Hg] 76 mm[Hg] Solange Howe RN [facility] [employer] [facility] 4 12:13:55 Date Recorded Body height Body mass index (BMI) Body weight Body temperature Heart rate Oxygen saturation Oxygen saturation in Arterial blood by Pulse oximetry Systolic blood pressure Diastolic blood pressure Provider Name and Address Organization Details Last Updated DateTime 5 172.72 cm 27.2 kg/m2 46220.0 3 g 97.6 [degF] 85 /min 98 % 98 % 120 mm[Hg] 68 mm[Hg] Gabbie Ayers [facility] [employer] [facility] 5 16:55:55 Social History Question Answer Notes LastModified by [employer] Details LastModified Time Tobacco Smoking Status Never Smoker Not Available [facility] 04/07/2022 10:40:57 Do You Have An Advance Directive? No [id number] Information not available 04/07/2022 What Is Your Level Of Caffeine Consumption? Moderate [id number].[id number] Information not available 04/07/2022 In The 14 Days Before Symptom Onset, Have You Had Close Contact With A Laboratory-confirm ed COVID-19 While That Case Was Ill? No [id number] Information not available 04/07/2022 In The 14 Days Before Symptom Onset, Have You Had Close Contact With A Person Who Is Under Investigation For COVID-19 While That Person Was Ill? No [id number].[id number] Information not available 04/07/2022 What Type Of Diet Are You Following? REGULAR [id number] Information not available 04/07/2022 What Was The Date Of Your Most Recent Tobacco Screening? 05/14/2024 [email or web address] Information not available 05/14/2024 Do You Use Sunscreen Routinely? No MIGRATION.633573 9139 Information not available 04/07/2022 Has Tobacco Cessation Counseling Been Provided? No MIGRATION.038534 4141 Information not available 04/07/2022 Have You Recently Traveled Abroad? No MIGRATION.694454 [id number] Information not available 04/07/2022 Do You Have Any Dietary Restrictions? No MIGRATION.258087 9961 Information not available 04/07/2022 Sex: Unknown Functional Status Question Answer Note LastModified by [employer] Details LastModified Time Do you use any illicit or recreational drugs? No MIGRATION.[id number] 035 Information not available 04/07/2022 Do you or have you ever used any other forms of tobacco or nicotine? No MIGRATION.[id number] 035 Information not available 04/07/2022 What is your level of alcohol consumption? None [id number].[id number] 035 Information not available 04/07/2022 What is your exercise level? Occasional [id number].[id number] 035 Information not available 04/07/2022 Mental Status None recorded. Family History Relationship Description Onset Age of this Age Resolved Age Notes LastModified by Organization Details LastModified Time Father No current problems or disability [id number] Not available 04/07/2022 10:42:49 Mother No current problems or disability [id number] Not available 04/07/2022 10:42:49 Mother Endometriosi s (clinical) MIGRATION.108 [id number] Not available 04/07/2022 10:42:49 Medical History No [...] 3 completed Mita Roa APRN [address], [address] [address], [place], [address], [employer] [facility] De Correspondent 10/18/2023 11:02:30 Hib, unspecified formulation 4 completed Mita Roa APRN [address], [address] [facility], [place], [address], [employer] [facility] De Correspondent 10/18/2023 11:02:31 Hib, unspecified formulation 3 [address], [place], [address], [employer] [facility] De Correspondent 10/18/2023 11:02:31 meningococcal B, OMV 0 completed Mita Roa APRN [address], [place], [address], [employer] [facility] De Correspondent 10/18/2023 11:02:31 HPV9 7 completed Mita Roa APRN [address], [address], [place], [address], [facility] [employer] [facility] 10/18/2023 11:02:31 HPV9 6 completed Mita Roa APRN [address], [address], [place], [address], [facility] [employer] [facility] 10/18/2023 11:02:31 Influenza, MDCK, quadrivalent, PF 2 completed Mita Roa APRN [address], [address], [place], [address], [facility] [employer] [facility] 10/18/2023 11:02:31 Influenza, live, trivalent, intranasal 7 completed Mita Roa APRN [address], [address], [place], [address], [facility] [employer] [facility] 10/18/2023 11:02:31 MMR 4 completed Mita Roa APRN [address], [address], [place], [address], [facility] [employer] [facility] 10/18/2023 11:02:31 MMR 8 completed Mita Roa APRN [address], [address], [place], [address], [facility] [employer] [facility] 10/18/2023 11:02:31 COVID-19, mRNA, LNP-S, PF, 30 mcg/0.3 mL dose 1 completed Mita Roa APRN [address], [address], [place], [address], [facility] [employer] [facility] 10/18/2023 11:02:31 COVID-19, mRNA, LNP-S, PF, 30 mcg/0.3 mL dose 1 completed Mita Roa APRN [address], [address], [place], [address], [facility] 10/18/2023 11:02:31 COVID-19, mRNA, LNP-S, PF, 30 mcg/0.3 mL dose, radha-sucrose [address], [place], [address], [facility] 10/18/2023 11:02:31 COVID-19, mRNA, LNP-S, bivalent, PF, 30 mcg/0.3 mL dose [address], [place], [address], [facility] 10/18/2023 11:02:31 pneumococcal conjugate PCV 7 3 completed RANJEET River[address], [place], [address], [facility] 10/18/2023 11:02:31 pneumococcal conjugate PCV 7 4 completed [address], [place], [address], [facility] 10/18/2023 11:02:31 pneumococcal conjugate PCV 7 3 [address], [place], [address], [facility] 10/18/2023 11:02:31 pneumococcal conjugate PCV 7 3 completed [address], [place], [address], [facility] 10/18/2023 11:02:31 influenza, unspecified formulation 8 completed R[address]JEET [address], [place], [address], [facility] 10/18/2023 11:02:31 influenza, unspecified formulation 6 completed [address], [place], [address], [facility] 10/18/2023 11:02:31 influenza, unspecified formulation 8 completed Mita Roa APRN [address], [address], [place], [address], [facility] 10/18/2023 11:02:31 influenza, unspecified formulation 5 completed Mita Roa APRN [address], [address], [place], [address], [facility] 10/18/2023 11:02:31 Tdap 4 completed Mita Roa APRN [address], [address], [place], [address], [facility] 10/18/2023 11:02:31 varicella 4 completed Mita Roa APRN [address], [address], [place], [address], [facility] [employer] [facility] 10/18/2023 11:02:31 varicella 8 completed Mita Roa APRN [address], [place], [address], [facility] [employer] [facility] 10/18/2023 11:02:31 Hep B, unspecified formulation 3 completed Mita Roa APRN [address], [place], [address], [facility] [employer] [facility] 10/18/2023 11:03:02 Hep B, unspecified formulation 4 completed Mita Roa APRN [address], [place], [address], [facility] 10/18/2023 11:02:31 Hep B, unspecified formulation 3 ирина Roa APRN [address], [address], [place], [address], [facility] [employer] [facility] 10/18/2023 11:03:02 polio, unspecified formulation 5 completed Mita Roa APRN [address], [address], [place], [address], [employer] 10/18/2023 11:02:31 polio, unspecified formulation 3 completed Mita Roa APRN [address], [address], [place], [address], [employer] [facility] [employer] [facility] 10/18/2023 11:02:31 polio, unspecified formulation 3 completed Mita Roa APRN [address], [address], [place], [address], [employer] [facility] [employer] [facility] 10/18/2023 11:02:31 polio, unspecified formulation 8 completed [address], [place], [address], [employer] [facility] [employer] 10/18/2023 11:02:31 meningococcal MCV4P 0 completed RANJEET [address], [place], [address], [employer] [facility] [employer] 10/18/2023 11:02:31 meningococcal MCV4P 4 completed Mita Roa APRN [address], [address], [place], [address], [employer] [facility] 10/18/2023 11:02:31 DTaP, unspecified formulation 5 completed Mita Roa APRN [address], [address], [place], [address], [employer] [facility] 10/18/2023 11:02:31 DTaP, unspecified formulation 3 ирина Roa APRN [address], [address], [place], [address], [employer] [facility] 10/18/2023 11:03:02 DTaP, unspecified formulation [address], [place], [address], [facility] [employer] [facility] 10/18/2023 11:03:02 DTaP, unspecified formulation 8 completed Mita Roa APRN [address] [facility], [facility] [address], [place], [address], [facility] [employer] [facility] 10/18/2023 11:02:31 DTaP, unspecified formulation 3 completed Mita Roa APRN [address], [facility] [address], [place], [address], [facility] [employer] [facility] 10/18/2023 11:03:02 Hib-Hep B [id number]|2024-06-21 14:40:00|2024-06-21 14:40:00|XMS_ITS|BKG DAVERENICEON|External Medical Summaries|[id number]|" Clinical Summary Created on: June 21, 2024 Dyana Ray : 2000 Sex: Female Author Organization [facility] Address [address] [place] [address] Care Team Providers Care Pipe Fitter Supervisor Name Role Phone Unavailable Primary Care Provider Unavailabl e Social History Tobacco Use Types Packs/Day Years Used Date Smoking Tobacco: Never Assessed Comments Unknown Sex and Gender Information Value Date Recorded Sex Assigned at Not on file 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
--- OUTSIDE RECORDS SUMMARY | 2024-06-21 14:40 | XMS_ITS | Referral Summary ---
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 CMR [facility] Care Teams Automatic Profile Sander Operator Relationship Specialty Start Date End Date Leslie Aquino NP [address] [place] [address] PCP - General Family Medicine 04/23/24
--- OUTSIDE RECORDS SUMMARY | 2024-06-21 14:40 | XMS_ITS | Clinical Summary ---
Author Organization [facility] Address [address] [place] [address] Phone Care Team Providers Care Newspaper Deliverer Name Role Phone Allyson Mckee MD Primary [...] - Bexsero SCDM 2-dose series) 03/07/2020 09/05/2019 Influenza Immunization (#1) 10/09/2023/04/2020, 10/31/2017, 12/27/2007, Additional history exists SARS-COV-2 Immunization ( season) 2023 08/17/2021, 04/02/2020, 03/12/2020 Respiratory Syncytial [...] patient's age to complete this topic Insurance [facility] Care Teams Newspaper Deliverer Relationship Specialty Start Date End Date Allyson Mckee MD [address] [place] [id number] PCP - General Family Medicine 11/03/21
--- OUTSIDE RECORDS SUMMARY | 2024-06-21 14:40 | XMS_ITS | Clinical Summary ---
Author Organization [facility] [address] [facility] Address [address] [place] [address] Care Team Providers Care Fishing Boat Captain Name Role Phone Leslie Aquino NP Primary Care Provider [phone] Allergies Active Allergy Reactions Criticality Noted Date [...] on file Legal Sex Female 11:26 PM [employer] Gender Identity Not on file Sexual Orientation [...] 2023 12/16/2021, 08/17/2021, 04/02/2020, Additional history exists DTaP/Tdap/Td Vaccine (7 - Td or Tdap) 10/11/2023 10/10/2013, 08/23/2007, 03/11/2004, Additional history exists Influenza Vaccine (Season Ended) 2024 12/16/2021, 01/29/2021, 10/31/2017, Additional history exists Hepatitis B Screening Completed 07/11/2003 , 2002, 2002, Additional history exists Pneumococcal vaccine <65 Completed 004, 2002, 2002, Additional history exists Varicella Vaccines Completed 08/23/2007, 04/11/2003 HPV Vaccines Completed 10/20/2016, 12/09/2015 Insurance [employer] [facility] [employer] [facility] Care Teams Fishing Boat Captain Relationship Specialty Start Date End Date Leslie Aquino NP [address] [id number] PCP - General Family Medicine 04/23/24
[2024-06-21 14:44] VITALS: BP 129/63; PULSE 81; RESP 16; TEMP 36.5; O2SAT 100
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
== END 2024-06-21 15:08 | disposition home or self-care (01) ==
PROVIDERS: PCP Nurse Practitioner Family
DX: M54.50 Low back pain, unspecified (principal); F17.290 Nicotine dependence, other tobacco product, uncomplicated
CPT/HCPCS: 99213; G0463